=== PATIENT | female | born 1940 | race Caucasian/White ===

== ENCOUNTER 2020-05-23 09:55 | Outpatient (REF) | payer MEDICARE, SELFPAY ==
--- NOTE | 2020-05-23 17:27 | PFT_ITS ---
Forced vital capacity, FEV1, SNU76-65, and MVV are all markedly decreased. Post bronchodilator therapy, there is significant improvement in all parameters. Total lung capacity normal. Residual volume is markedly increased. Diffusion capacity is markedly decreased. CONCLUSION: Severe obstructive airway disorder. Partial reversibility after bronchodilator therapy is noted. These findings are consistent with asthma/COPD overlap syndrome. Clinical correlation recommended. MD KAY Hanson/MODL / [id number]
== END 2020-05-23 09:56 | disposition home or self-care (01) ==
LOC: HO.RESP 09:55
PROVIDERS: PCP Internal Medicine; Visit Provider Hospitalist
DX: R91.8 Other nonspecific abnormal finding of lung field (principal); J43.2 Centrilobular emphysema
CPT/HCPCS: 94060; 94727; 94729; 99212

== ENCOUNTER → 2020-11-29 13:48 | Outpatient (BNVA) | payer MEDICARE, SELFPAY | PROVIDERS: PCP Internal Medicine; Visit Provider Hospitalist | DX: J41.0 Simple chronic bronchitis (principal); R06.00 Dyspnea, unspecified | CPT/HCPCS: 99212 ==

== ENCOUNTER → 2021-07-29 09:18 | Outpatient (BNVA) | payer MEDICARE, SELFPAY | PROVIDERS: PCP Internal Medicine; Visit Provider Hospitalist | DX: J41.0 Simple chronic bronchitis (principal); R06.00 Dyspnea, unspecified; Z79.899 Other long term (current) drug therapy | CPT/HCPCS: 99212 ==

== ENCOUNTER 2021-11-11 14:00 | Outpatient (RCR) | payer MEDICARE, SELFPAY | END 2021-12-11 14:01 | disposition home or self-care (01) | LOC: HO.WCC 14:00 | PROVIDERS: PCP Internal Medicine; Referring Provider Internal Medicine; Visit Provider Surgery | DX: S81.811A Laceration without foreign body, right lower leg, initial encounter (principal); I87.2 Venous insufficiency (chronic) (peripheral); Z79.01 Long term (current) use of anticoagulants; Z79.899 Other long term (current) drug therapy | CPT/HCPCS: 11042; 99212 ==

== ENCOUNTER → 2022-03-17 10:59 | Outpatient (BNVA) | payer MEDICARE, SELFPAY | PROVIDERS: PCP Internal Medicine; Visit Provider Hospitalist | DX: J44.1 Chronic obstructive pulmonary disease with (acute) exacerbation (principal); R06.00 Dyspnea, unspecified | CPT/HCPCS: 94618; 99212 ==

== ENCOUNTER → 2022-07-07 11:24 | Outpatient (BNVA) | payer MEDICARE, SELFPAY | PROVIDERS: PCP Internal Medicine; Visit Provider Hospitalist | DX: J44.9 Chronic obstructive pulmonary disease, unspecified (principal); R06.00 Dyspnea, unspecified; R91.8 Other nonspecific abnormal finding of lung field; Z87.891 Personal history of nicotine dependence | CPT/HCPCS: 99212 ==

== ENCOUNTER 2023-04-23 08:52 | Outpatient (AMB) | payer MEDICARE, SELFPAY ==
[2023-04-23 08:54] VITALS: BP 142/77; PULSE 84; O2SAT 87; BMI 25.2
--- NOTE | 2023-04-23 08:54 | MHC.OFFVIS ---
Intake Vital Signs 04/23/23 08:54 Height 4 ft 11 in Weight 125 lb BMI 25.2 BP 142/77 H Blood Pressure Location Rt brachial Position Sitting Pulse 84 Pulse Source Doppler Pulse Oximetry (%) 87 L Oxygen Delivery Method Room Air Intake Visit Reasons: cough Allergies amoxicillin Allergy (Severe, Verified 04/23/23 09:03) Hives HPI HPI Comments History of Present Illness Details The patient is an 83 year-old woman with known history of COPD in addition to pulmonary nodules. She has been staying very active. He continues on the Bevespi this has been effective and beneficial for her. We did review her CT scan of the chest that she had back in 2018 demonstrating stable pulmonary nodules when compared to many years prior of 03/2012. She also had a chest x-ray done demonstrating hyperinflation. The patient denies any significant shortness of breath or cough. Overall she is doing well. Will plan to repeat her pulmonary function studies and x-ray sometime in the spring of 2020. 03/17/2022 the patient for a sick visit. The patient has been having increasing shortness of breath for the last couple weeks. Moderate severity. Even with minimal activity. She also has a cough. [id number]-[id number] severity. Difficult to expectorate. We did go for 6 minutes walk test. The patient does desaturate down to about 90% but still does not qualify for oxygen. She does have significant COPD and also significant diffusion impairment based on her PFTs from 2020. on examination she does have wheezing. It is likely that she is having a prolonged COPD exacerbation. Will go ahead and start her on some prednisone antibiotics to try to a alleviate her symptoms. Also, for now which patient can start on Flovent. She will provide us with a chest x-ray. 07/07/2022 the patient is here for a pulmonary follow-up visit. Overall she is feeling better. She did start the Flovent inhaler although she did not see any significant improvement. It is also very expensive for her. She also feels like it is cumbersome using up to 6-8 puffs a day with her different inhalers. Therefore will going to go ahead and hold off on the Flovent. I did request that she can just keep it is somewhere that if her symptoms worsen she can be started. Patient seems to be doing okay just in the Vest be. She does use her rescue inhaler as needed prior to doing any excessive activity in this appears to be working for her. Her last chest x-ray personally reviewed no acute disease. She does have a chronic compression fracture. 04/23/2023 the patient is here for pulmonary follow-up visit. Since we lost evaluate the patient she did have an x-ray done by primary care doctor that demonstrated new nodular density. Therefore, she was order to have a CT scan of the chest demonstrating any regular concerning pulmonary nodule. Measuring 1.6 cm in the right upper lobe. Therefore the patient was requested to have an urgent thoracic surgery evaluation for potential surgical resection with curative intent. I did speak to the patient over the phone. She did describe that time that she started developing a cough and chest congestion and wheezing. Therefore having COPD exacerbation. She was started on antibiotics in addition to prednisone. Initially her symptoms were minimal to moderate. The patient was not seen any significant improvement with the medications provided. Therefore she called the office with persistent cough chest congestion. We did increase her antibiotics and broaden her coverage. She had a hard time sleeping. DVT provide her with some codeine cough syrup also helping her cough. Today during the visit she has feeling a lot better. Her cough is significantly less. She is finishing a course of levofloxacin. Prior to that she completed a course of doxycycline. We wanted to make sure that her symptoms improved before her thoracic surgery evaluation coming up next week. The patient was scheduled to have it a week ago but she had to reschedule because of her cough. During the visit we did go for a walking oximetry the patient did not qualify for oxygen although she did desaturate down to the low 90s. [facility] Medical History (Updated 07/07/22 @ 20:38 by Mando Brewer MD) Asthma Dyspnea COPD (chronic obstructive pulmonary disease) Pulmonary nodules Social History Patient Tobacco Use Status: Former Tobacco user Tobacco use type: Cigarette Years Smoked: 40+ years Review of Systems Const Reports difficulty sleeping and Denies night sweats ENT Denies change in voice, Denies lip swelling, Denies mouth pain, Reports nasal congestion, Reports nasal discharge and Denies tongue swelling Card Denies chest pain and Reports dyspnea on exertion Resp Reports change in phlegm color, Reports chest congestion, Reports cough, Denies hemoptysis, Reports dyspnea on exertion and Reports wheezing GI Denies abdominal pain Musc Denies no additional complaints Neuro Denies Neuro-related abnormal movements Psych Denies no additional complaints Karlo/Lymph Denies easy bleeding and Denies lymphadenopathy Aller/Immun Denies lip swelling, Denies tongue swelling and Reports wheezing Physical Exam Vital Signs: Last Vital Signs Pulse 84 04/23/23 08:54 BP 142/77 H 04/23/23 08:54 Pulse Ox 87 L 04/23/23 08:54 Oxygen Delivery Method Room Air 04/23/23 08:54 BMI result Body Mass Index 25.2 Const General: alert Neck Neck: Yes normal visual inspection, Yes full ROM and Yes no lymphadenopathy Chest Chest palpation & inspection: normal inspection of the chest Resp Auscultation: no wheezes and diminished lung sounds Cardio Rate: regular rate Rhythm: regular rhythm Heart sounds: S1 normal heart sound present and S2 normal heart sound present GI Palpation (GI): Soft to palpation and nontender Auscultation: normal bowel sounds Skin General skin exam: rashes and/or lesions noted Assessment & Plan Assessment & Plan (1) Dyspnea: Code(s): R06.00 - Dyspnea, unspecified Qualifiers: Dyspnea type: dyspnea on exertion Qualified Code(s): R06.00 - Dyspnea, unspecified (2) COPD (chronic obstructive pulmonary disease): Code(s): J44.9 - Chronic obstructive pulmonary disease, unspecified Qualifiers: COPD type: COPD with acute exacerbation Qualified Code(s): J44.1 - Chronic obstructive pulmonary disease with (acute) exacerbation (3) Pulmonary nodules: Code(s): R91.8 - Other nonspecific abnormal finding of lung field Plan Continue respiratory therapy with Bevespi complete prednisone taper complete Levaquin TERI as needed continue Fluticasone nasal spray The patient desats with activity, but still does not qualify for oxygen CXR Thoracic surgery consultation for the worrisome RUL pulmonary nodule next week F/U 2 months Orders: Orders XR chest 2V 04/23/23 R06.00 - Dyspnea, unspecified Medications: New nystatin swish and swallow 1 mL PO BID 30 days 60 mL 2RF Coding Level of Care Code Est Pt Level 4 (81206) Diagnoses Dyspnea on exertion R06.00 Dyspnea type: dyspnea on exertion Chronic obstructive pulmonary disease with acute exacerbation J44.1 COPD type: COPD with acute exacerbation Pulmonary nodules R91.8 Time Spent (min) 20
== END 2023-04-23 09:27 | disposition home or self-care (01) ==
PROVIDERS: PCP Internal Medicine; Visit Provider Hospitalist
DX: R06.00 Dyspnea, unspecified (principal); J44.1 Chronic obstructive pulmonary disease with (acute) exacerbation; R91.8 Other nonspecific abnormal finding of lung field
CPT/HCPCS: 99214

== ENCOUNTER → 2023-04-23 08:52 | Outpatient (BNVA) | payer MEDICARE, SELFPAY | PROVIDERS: PCP Internal Medicine; Visit Provider Hospitalist | DX: R06.00 Dyspnea, unspecified (principal); R91.8 Other nonspecific abnormal finding of lung field; J44.1 Chronic obstructive pulmonary disease with (acute) exacerbation | CPT/HCPCS: 99212 ==

== ENCOUNTER 2023-04-27 09:55 | Outpatient (AMB) | payer MEDICARE, SELFPAY ==
[2023-04-27 09:57] VITALS: BP 104/50; PULSE 73; O2SAT 94; BMI 25.2
--- NOTE | 2023-04-27 09:57 | HO.NEPHOV ---
HPI HPI Comments History of Present Illness Details I had the privilege of seeing Ms. Andersen in follow-up of her hypertension. She has history of pulmonary nodules but has a new lesion and is going to undergo a PET scan. She has already seen Dr. Sexton and also is closely followed up by Dr. Mando Brewer. She consumes excess free water by mouth. Her blood pressure has been at goal. She denies worsening pedal edema, change in mental status, weakness, dizziness, hemoptysis, night sweats, weight loss. She does not have any nausea vomiting or diarrhea. [facility] Medical History (Updated 04/27/23 @ 10:27 by Adolfo Welch MD) Asthma Dyspnea COPD (chronic obstructive pulmonary disease) Pulmonary nodules Family History (Updated 04/27/23 @ 10:07 by Megan Marcos MA) Mother Cancer Father Hypertension Social History Patient Tobacco Use Status: Former Tobacco user Tobacco use type: Cigarette Years Smoked: 40+ years Vital Signs 04/27/23 09:57 Height 4 ft 11 in Weight 125 lb BMI 25.2 BP 104/50 L Blood Pressure Location Lt brachial Position Sitting Pulse 73 Pulse Source Pulse Oximeter Pulse Oximetry (%) 94 Oxygen Delivery Method Room Air Physical Exam Vital Signs: Last Vital Signs Pulse 73 04/27/23 09:57 BP 104/50 L 04/27/23 09:57 Pulse Ox 94 04/27/23 09:57 Oxygen Delivery Method Room Air 04/27/23 09:57 BMI result Body Mass Index 25.2 Const General: comfortable and no acute distress Orientation/consciousness: patient oriented x3 HEENT Head: Yes normocephalic Mouth: Normal oral and palatal mucosa present Eyes EOM: EOMs intact bilaterally Neck Neck: Yes supple Resp Auscultation: clear to auscultation bilaterally Cardio Jugular venous distension: no JVD Rate: regular rate GI Palpation (GI): Soft to palpation Auscultation: normal bowel sounds General: Yes no CVA tenderness Back/Spine/Pelvis Back: no CVA tenderness Skin General skin exam: no rashes or lesions noted Neuro General: patient oriented x3 and moves all extremities Extrem General: Yes no pedal edema Assessment & Plan Assessment & Plan (1) Hypertension: Code(s): I10 - Essential (primary) hypertension Qualifiers: Hypertension type: primary hypertension Qualified Code(s): I10 - Essential (primary) hypertension Plan Ms. Andersen has longstanding hypertension which is well controlled on the current medication regimen. She is not taking any hydrochlorothiazide. She takes an excess free water which I asked her to restrict to 50-60 oz in 24 hours. She is going to undergo PET scan. She may need a biopsy of the lung lesion. She should cut back sodium in the diet. I did not make any medication changes today. Follow-up blood work ordered. Follow-up appointment given in 6 months. Answered all questions. Orders: Orders Creatinine Today I10 - Essential (primary) hypertension Electrolytes Today I10 - Essential (primary) hypertension Blood Urea Nitrogen Today I10 - Essential (primary) hypertension Coding Level of Care Code Est Pt Level 4 (76093) Diagnoses Primary hypertension I10 Hypertension type: primary hypertension Results Reviewed Nephrology Results: No Data to Display
== END 2023-04-27 10:32 | disposition home or self-care (01) ==
PROVIDERS: PCP Internal Medicine; Visit Provider Internal Medicine Nephrology
DX: I10 Essential (primary) hypertension (principal)
CPT/HCPCS: 99214

== ENCOUNTER → 2023-04-27 09:55 | Outpatient (BNVA) | payer MEDICARE, SELFPAY | PROVIDERS: PCP Internal Medicine; Visit Provider Internal Medicine Nephrology | DX: I10 Essential (primary) hypertension (principal) | CPT/HCPCS: 99212 ==

== ENCOUNTER 2023-06-24 08:52 | Outpatient (AMB) | payer MEDICARE, SELFPAY ==
[2023-06-24 09:00] VITALS: PULSE 69; O2SAT 96; BMI 25.3
--- NOTE | 2023-06-24 09:00 | A.OFFVIS_ITS ---
Vital Signs 06/24/23 09:00 Height 4 ft 11 in Weight 125 lb 7.088 oz BMI 25.3 Pulse 69 Pulse Source Pulse Oximeter Pulse Oximetry (%) 96 Oxygen Delivery Method Room Air Intake Visit Reasons: Cough Software Sales Required: No Allergies amoxicillin Allergy (Severe, Verified 06/24/23 09:02) Hives HPI Comments Details: The patient is an 83 year-old woman with known history of COPD in addition to pulmonary nodules. She has been staying very active. He continues on the Bevespi this has been effective and beneficial for her. We did review her CT scan of the chest that she had back in 2018 demonstrating stable pulmonary nodules when compared to many years prior of 03/2012. She also had a chest x-ray done demonstrating hyperinflation. The patient denies any significant shortness of breath or cough. Overall she is doing well. Will plan to repeat her pulmonary function studies and x-ray sometime in the spring. 03/17/2022 the patient for a sick visit. The patient has been having increasing shortness of breath for the last couple weeks. Moderate severity. Even with minimal activity. She also has a cough. Symt-re-fjalmstx severity. Difficult to expectorate. We did go for 6 minutes walk test. The patient does desaturate down to about 90% but still does not qualify for oxygen. She does have significant COPD and also significant diffusion impairment based on her PFTs from 2020. on examination she does have wheezing. It is likely that she is having a prolonged COPD exacerbation. Will go ahead and start her on some prednisone antibiotics to try to a alleviate her symptoms. Also, for now which patient can start on Flovent. She will provide us with a chest x-ray. 07/07/2022 the patient is here for a pulmonary follow-up visit. Overall she is feeling better. She did start the Flovent inhaler although she did not see any significant improvement. It is also very expensive for her. She also feels like it is cumbersome using up to 6-8 puffs a day with her different inhalers. Therefore will going to go ahead and hold off on the Flovent. I did request that she can just keep it is somewhere that if her symptoms worsen she can be started. Patient seems to be doing okay just in the Vest be. She does use her rescue inhaler as needed prior to doing any excessive activity in this appears to be working for her. Her last chest x-ray personally reviewed no acute disease. She does have a chronic compression fracture. 04/23/2023 the patient is here for pulmonary follow-up visit. Since we lost evaluate the patient she did have an x-ray done by primary care doctor that demonstrated new nodular density. Therefore, she was order to have a CT scan of the chest demonstrating any regular concerning pulmonary nodule. Measuring 1.6 cm in the right upper lobe. Therefore the patient was requested to have an urgent thoracic surgery evaluation for potential surgical resection with curative intent. I did speak to the patient over the phone. She did describe that time that she started developing a cough and chest congestion and wheezing. Therefore having COPD exacerbation. She was started on antibiotics in addition to prednisone. Initially her symptoms were minimal to moderate. The patient was not seen any significant improvement with the medications provided. Therefore she called the office with persistent cough chest congestion. We did increase her antibiotics and broaden her coverage. She had a hard time sleeping. DVT provide her with some codeine cough syrup also helping her cough. Today during the visit she has feeling a lot better. Her cough is significantly less. She is finishing a course of levofloxacin. Prior to that she completed a course of doxycycline. We wanted to make sure that her symptoms improved before her thoracic surgery evaluation coming up next week. The patient was scheduled to have it a week ago but she had to reschedule because of her cough. During the visit we did go for a walking oximetry the patient did not qualify for oxygen although she did desaturate down to the low 90s. 06/24/2023 the patient is here for pulmonary follow-up visit. She finally recovered from the pneumonia. She completed the antibiotics in the prednisone. She did use the oxygen briefly but then she felt better she did not require anymore. She is thinking about getting an oximeter to monitor his oxygen which is a good idea. Today walking in the room she was saturating 95% which is reassuring. She also underwent a Navagational bronchoscopy and EBUS. This is done at [facility]. The patient will be following up with Dr. Sexton next week. Will go ahead and call him to make sure we discussed the findings and have a good plan for the patient. In the meantime she is feeling better. She has been using respiratory therapy as prescribed. [facility] Medical History (Updated 04/27/23 @ 10:27 by Adolfo Welch MD) Asthma Dyspnea COPD (chronic obstructive pulmonary disease) Pulmonary nodules Family History (Updated 04/27/23 @ 10:07 by Megan Marcos MA) Mother Cancer Father Hypertension Social History Patient Tobacco Use Status: Former Tobacco user Tobacco use type: Cigarette Years Smoked: 40+ years Review of Systems Const Denies night sweats ENT Denies change in voice, Denies lip swelling, Denies mouth pain, Reports nasal congestion, Reports nasal discharge and Denies tongue swelling Card Denies chest pain and Reports dyspnea on exertion Resp Denies change in phlegm color, Denies chest congestion, Reports cough, Denies hemoptysis, Reports dyspnea on exertion and Denies wheezing GI Denies abdominal pain Musc Denies no additional complaints Neuro Denies Neuro-related abnormal movements Psych Denies no additional complaints Karlo/Lymph Denies easy bleeding and Denies lymphadenopathy Aller/Immun Denies lip swelling, Denies tongue swelling and Denies wheezing Physical Exam Vital Signs: Last Vital Signs Pulse 69 06/24/23 09:00 Pulse Ox 96 06/24/23 09:00 Oxygen Delivery Method Room Air 06/24/23 09:00 BMI result Body Mass Index 25.3 Const General: alert Neck Neck: Yes normal visual inspection, Yes full ROM and Yes no lymphadenopathy Chest Chest palpation & inspection: normal inspection of the chest Resp Effort & Inspection: normal respiratory effort Auscultation: no wheezes and diminished lung sounds Cardio Rate: regular rate Rhythm: regular rhythm Heart sounds: S1 normal heart sound present and S2 normal heart sound present GI Palpation (GI): Soft to palpation and nontender Auscultation: normal bowel sounds Skin General skin exam: rashes and/or lesions noted Assessment & Plan Assessment & Plan (1) Dyspnea: Code(s): R06.00 - Dyspnea, unspecified Category: Medical Qualifiers: Dyspnea type: dyspnea on exertion Qualified Code(s): R06.00 - Dyspnea, unspecified (2) COPD (chronic obstructive pulmonary disease): Code(s): J44.9 - Chronic obstructive pulmonary disease, unspecified Category: Medical Qualifiers: COPD type: COPD with acute exacerbation Qualified Code(s): J44.1 - Chronic obstructive pulmonary disease with (acute) exacerbation (3) Pulmonary nodules: Code(s): R91.8 - Other nonspecific abnormal finding of lung field Category: Medical Plan Continue respiratory therapy with Bevespi TERI as needed continue Fluticasone nasal spray Awaiting pathology results of the Navagational bronchoscopy/EBUS Discontinue oxygen, better at this point F/U 3 months Coding Level of Care Code Est Pt Level 4 (65228) Diagnoses Dyspnea on exertion R06.00 Dyspnea type: dyspnea on exertion Chronic obstructive pulmonary disease with acute exacerbation J44.1 COPD type: COPD with acute exacerbation Pulmonary nodules R91.8 Time Spent (min) 16
== END 2023-06-24 09:21 | disposition home or self-care (01) ==
PROVIDERS: PCP Internal Medicine; Visit Provider Hospitalist
DX: R06.00 Dyspnea, unspecified (principal); J44.1 Chronic obstructive pulmonary disease with (acute) exacerbation; R91.8 Other nonspecific abnormal finding of lung field
CPT/HCPCS: 99214

== ENCOUNTER → 2023-06-24 08:52 | Outpatient (BNVA) | payer MEDICARE, SELFPAY | PROVIDERS: PCP Internal Medicine; Visit Provider Hospitalist | DX: R06.00 Dyspnea, unspecified (principal); J44.1 Chronic obstructive pulmonary disease with (acute) exacerbation; R91.8 Other nonspecific abnormal finding of lung field | CPT/HCPCS: 99212 ==

== ENCOUNTER 2023-06-30 12:50 | Outpatient (AMB) | payer MEDICARE, SELFPAY ==
--- OUTSIDE RECORDS SUMMARY | 2023-06-30 12:52 | XMS_ITS | Continuity of Care Document ---
Author Organization [facility] ter Address [address] [place] [id number] Care Team Providers Care Swift Tender Name Role Phone Vidal Payan MD Primary Care Physician Encounter [facility] [place] Date(s): 03/18/23 - 03/18/[address] [address]- Attending Physician: Vidal Payan MD Patient Care team information Care Team Personnel Name: Kenyetta Watson Position: [facility] Outreach Member Role: [employer] Consulting Physician Name: Vidal Payan MD Position: [facility] Outreach Member Role: PCP Address: Address: [address] [place] [address] Care Team Related Persons Name: ARTHUR YOU Address: home [address] [place] [address]
--- OUTSIDE RECORDS SUMMARY | 2023-06-30 12:52 | XMS_ITS | Patient Health Record ---
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 Name Role Phone Vidal Payan MD Primary Care Provider Unavail able Carla Johnson Unavailable [phone] ALLERGIES Allergen (clinical drug ingredient) Drug/Non Drug Allergy documented on EMR Reaction Allergy Type Onset Date Status Penicillin Unknown Drug Allergy Active REASON FOR REFERRAL Diagnosis 1 Atherosclerosis of n ative artery of both lower extremities, with unspecified presence of clinical manifestation (I70.203) Diagnosis 2 Pain in left toe(s) (M79.675) Diagnosis 3 Pain in right toe(s) (M79.674) Diagnosis 4 Ingrown nail (L60.0) Diagnosis 5 Tinea unguium (B35.1 ) Referring Provider First Name Vidal Referring Provider Last Name Schuyler Referred [facility] Referred Provider Carla Johnson Referred Address [address] [facility],[place],[address], Referred Provider Specialty Podiatry Referral Priority Routine MEDICATIONS Medication SIG (Take, Route, Frequency, Duration) Notes Start Date End Date Status Eliquis 2.5 MG TAKE 1 TABLET BY RAZ TWICE DAILY Oral for 30 Days Active Fluticasone Propionate 50 MCG/ACT Nasal for 90 Days Active Arthritis Pain 2023 Acti ve Carvedilol 12.5 MG Oral for 90 Days Active Alendronate Sodium 70 MG Oral for 84 Days Active Bevespi Aerosphere 9-4.8 MCG/ACT INHALE 2 PUFFS BY MOUTH TWICE DAILY Inhalation for 90 Days Active Rosuvastatin Calcium 20 MG TAKE 1 TABLET BY MOUTH EVERY DAY Oral for 90 Days Active Calcium 600 MG 1 tablet with meals Orally Twice a day for 30 day(s) 2023 Active Donepezil HCl 10 MG TAKE 1 TABLET BY RAZ TH EVERY DAY AT BEDTIME Oral for 90 Days Active Albuterol Sulfate HFA 108 (90 Base) MCG/ACT INHALE 1 TO 2 PUFFS BY MOUTH EVERY 4 TO 6 HOURS NEEDED Inhalation for 16 Days Active amLODIPine Besylate 5 MG TAKE 1 TABLET B Y MOUTH EVERY DAY Oral for 60 Days Active Qvar 2023 Active Vision Select 2023 Activ e Aspirin Low Dose 81 MG 1 tablet Orally O nce a day for 30 day(s) 2023 Active Turmeric Curcumin 500 MG as directed Orally 2023 Active Magnesium 400 MG as directed Orally 2023 Active SOCIAL HISTORY Tobacco Use: Social History Observation Description Date Details (start date - stop date) Former Smoker NA - NA Sex Assigned At : Social History Observation Description Sex Assigned At Unknown Tobacco Use/Smoking Question Answer Notes Are you a: former smoker Additional Findings: Tobacco Non-User Current no n-smoker Alcohol Screen Question Answer Notes Did you have a drink containing alcohol in the p ast year? No Points 0 Interpretation Negative Tobacco use other than smoking: Question Answer Notes Are you an other tobacco user? No PROBLEMS Problem Type ICD Code Onset Dates Problem Status W/U Status Risk SNOMED Code Notes Problem Hammer toe of right foot (M20.41) Active confirmed [id number] Problem 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) Active confirmed [id number] Problem Atherosclerosis of jamul artery of both lower extremities, with unspecified presence of clinical manifestation (I70.203) Active confirmed Atherosclerosis of jamul arteries of the extremities ([id number]) VITAL SIGNS Height 5 ft in 04/21/2023 Weight 130 lbs 04/21/2023 BMI 25.39 kg/m2 04/21/2023 Encounters Encounter Location Date Provider Diagnosis [facility] [address] 02/02/2023 Carla Johnson [facility] [address] [address] 2023 Carla Johnson [facility] [address] 04/21/2023 Carla Johnson Atherosclerosis of jamul artery of both lower extremities, with unspecified presence of clinical manifestation I70.203 ; Tinea unguium B35.1 ; Pain in right toe(s) M79.674 ; Pain in left toe(s) M79.675 ; Hammer toe of right foot M20.41 and Hammer toe of left foot M20.42 ASSESSMENTS Encounter Date Diagnosis Assessment Notes Treatment Notes Treatment Clinical Notes 04/21/2023 Tinea unguium (ICD-1 0 - B35.1) 04/21/2023 Atherosclerosis of jamul artery of both lower extremities, with unspecified presence of clinical manifestation (ICD-10 - I70.203) 04/21/2023 Pain in right toe(s) (ICD-10 - M79.674) 04/21/2023 Pain in left toe(s) (ICD-10 - M79.675) 04/21/2023 Hammer toe of right foot (ICD-10 - M20.41) 04/21/2023 Hammer toe of left foot (ICD-10 - M20.42) PLAN OF TREATMENT Next Appt Details Provider Name:Carla vasquez, 07/09/2023 12:45:00 PM, [address] [place] [address], [phone], Insurance Providers Payer Name Payer Address Payer Phone Subscriber Number Group Number Insured Name Patient Relationship to Insured Coverage Start Date Coverage End Date [employer] Medicare Preferred [address] [place] [address] [id number] Raquel Andersen Self - patient is the insured MEDICAL (GENERAL) HISTORY Medical History History ICD Code Arthritis Back,Hip,and Knee pain High blood pressure Chicken pox Surgical History Surgery Date(Month/Year)
[2023-06-30 12:56] VITALS: BP 130/76; PULSE 72; TEMP 36.3; O2SAT 96; BMI 24.6
--- NOTE | 2023-06-30 12:56 | AM.OFFWIN_ITS ---
Intake Vital Signs 06/30/23 12:56 Height 4 ft 11 in Weight 122 lb BMI 24.6 BP 130/76 Blood Pressure Location Lt brachial Position Sitting Pulse 72 Pulse Source Pulse Oximeter Temp 97.3 F Temp Source Temporal Artery Scan Pulse Oximetry (%) 96 Oxygen Delivery Method Room Air Intake Visit Reasons: EST/fell on left knee bleeding(lobby) Intake Note: pt is here today for fell on lft knee started today Patient Tobacco Use Status: Former Tobacco user Allergies amoxicillin Allergy (Severe, Verified 06/30/23 13:02) Hives Do you need a note to return to daycare/school/sports/work: Yes HPI HPI Comments History of Present Illness Details Patient is an 83yo F who presents to office with L knee pain and injury This am she was picking up something on the floor of her closet and tripped No carpetted floors Fell onto L knee No HT, LOC, dizziness, CP or syncope + abrasion L knee with bruising bleeding wound which she tried to apply neosporin and washed with water UTD on tetanus vaccination Took tramadol which she has for chronic back pain with some help of knee discomfort Worse with ambulation and bending of knee No other complaints PFSH Medical History (Updated 06/30/23 @ 13:30 by Rebekah Bocanegra PA-C) Asthma Dyspnea COPD (chronic obstructive pulmonary disease) Pulmonary nodules Family History (Updated 04/27/23 @ 10:07 by Megan Marcos MA) Mother Cancer Father Hypertension Social History Patient Tobacco Use Status: Former Tobacco user Tobacco use type: Cigarette Years Smoked: 40+ years Review of Systems Const Denies chills, Denies fever(s) and Denies headache(s) Eyes Denies blurry vision ENT Denies dizziness and Denies headache(s) Card Denies chest pain, Denies syncope and Denies dyspnea Resp Denies dyspnea Musc Reports joint swelling (L knee) Skin/Breast Reports wounds (L knee) Neuro Denies dizziness, Denies syncope, Denies headache(s), Denies lack of coordin ation and Denies other (denies loss of conciousness of head trauma) Karlo/Lymph Reports other (on Elaquis) Physical Exam Vital Signs: Last Vital Signs Temp 97.3 F 05/15/24 12:56 Pulse 72 06/30/23 12:56 BP 130/76 06/30/23 12:56 Pulse Ox 96 06/30/23 12:56 Oxygen Delivery Method Room Air 06/30/23 12:56 BMI result Body Mass Index 24.6 General: Non-toxic, NAD. Speaking full sentences. Skin: Warm dry throughout. L knee has + C shapped skin flap with slow bleed. No visualized FB. Approx 1.5 cm x 1.5cm. Flap is able to be aligned with wound edge using forceps. + deep purple/red skin discoloration to anterior L goodwin just distal to L knee along lateral edge. Eye: EOMI Respiratory: No respiratory distress or stridor MSK: Decreased flexion L knee due to wound. No bony tenderness to palpation but diffuse soft tissue tenderness near wound. Neurology: A/O. No aphasia or facial droop. Gait without abnormality Psych: Good mood and affect Office Procedures Laceration Repair Details: see below Laceration repair performed by: Rebekah Bocanegra Explained risks and benefits to parent: Yes Informed consent given: Yes Consent signed: No Location: L knee Length: 1.5cm Sedation: No Anesthesia: other (none) Irrigation: saline (NS used to irrigate/clean wound. Forceps used to lift flap without FB seen.) Preparation: other (none) Wound exploration: none Deep closure: No Skin closure: other (steri strips) Technique: foceprs used to approximate flap edges with wound border & strips applied Topical treatment: other (none. Non-adhesive and tegaderm) Tetanus toxoid ordered: No (pt states UTD) Patient tolerated procedure: with discomfort (minimal burning) [place]: [place] [id number] Repair <2.5cm Procedure code (CPT) selection complete Assessment & Plan Assessment & Plan (1) Abrasion of knee, left: Code(s): S80.212A - Abrasion, left knee, initial encounter Qualifiers: Encounter type: initial encounter Qualified Code(s): S80.212A - Abrasion, left knee, initial encounter Plan: Patient seen and evaluated. She will return in 24 hours for dressing change as she does not feel comfortable changing herself JESUS applied to avoid bending and for comfort She declined knee immobilizer or crutches Patient gave verbal understanding and had no additional questions or concerns at time of discharge All questions answered Coding Level of Care Code Est Pt Level 3 (23049) Diagnoses Abrasion of left knee, initial encounter S80.212A Encounter type: initial encounter
== END 2023-06-30 13:35 | disposition home or self-care (01) ==
PROVIDERS: PCP Internal Medicine; Visit Provider Physician Assistant
DX: S80.212A Abrasion, left knee, initial encounter (principal)
CPT/HCPCS: 99213

== ENCOUNTER 2023-07-02 11:31 | Outpatient (AMB) | payer MEDICARE, SELFPAY ==
--- OUTSIDE RECORDS SUMMARY | 2023-07-02 11:33 | XMS_ITS | Patient Health Record ---
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 Name Role Phone Vidal Payan MD Primary Care Provider Unavail able Carla Johnson Unavailable [phone] ALLERGIES Allergen (clinical drug ingredient) Drug/Non Drug [...] Vidal Referring Provider Last Name Schuyler Referred [facility] Referred Provider Carla Johnson Referred Address [address] [facility],[place], [place],[address], Referred Provider Specialty Podiatry Referral Priority Routine [...] toe of right foot (M20.41) Active confirmed [id number] Problem 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) Active confirmed [id number] Problem 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, with unspecified presence of clinical manifestation (I70.203) Active confirmed Atherosclerosis of grindstone arteries of the extremities ([id number]) VITAL SIGNS Height 5 ft in 04/21/2023 Weight 130 lbs 04/21/2023 BMI 25.39 kg/m2 04/21/2023 Encounters Encounter Location Date Provider Diagnosis [facility] [address] 02/02/2023 Carla Johnson [facility] [address] [address] 2023 Carla Johnson [facility] [address] 04/21/2023 Carla Johnson 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, with unspecified presence of clinical manifestation I70.203 ; Tinea unguium B35.1 ; Pain in right toe(s) M79.674 ; Pain in left toe(s) M79.675 ; Hammer toe of right foot M20.41 and Hammer toe of left foot M20.42 ASSESSMENTS Encounter Date Diagnosis Assessment Notes Treatment Notes Treatment Clinical Notes 04/21/2023 Tinea unguium (ICD-1 0 - B35.1) 04/21/2023 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, with unspecified presence of clinical manifestation (ICD-10 - I70.203) 04/21/2023 Pain in right toe(s) (ICD-10 - M79.674) 04/21/2023 Pain in left toe(s) (ICD-10 - M79.675) 04/21/2023 Hammer toe of right foot (ICD-10 - M20.41) 04/21/2023 Hammer toe of left foot (ICD-10 - M20.42) PLAN OF TREATMENT Next Appt Details Provider Name:Carla vasquez, 07/09/2023 12:45:00 PM, [address] [place] [address], [phone], Insurance Providers Payer Name Payer Address Payer Phone Subscriber Number Group Number Insured Name Patient Relationship to Insured Coverage Start Date Coverage End Date [employer] Preferred [address] [place] [address] [id number] Raquel Andersen Self - patient is the insured MEDICAL (GENERAL) HISTORY Medical History History ICD Code Arthritis Back,Hip,and Knee pain High blood pressure Chicken pox Surgical History Surgery Date(Month/Year)
[2023-07-02 12:01] VITALS: BP 112/62; PULSE 71; O2SAT 95; BMI 24.9
--- NOTE | 2023-07-02 12:01 | MHC.OFFWIV ---
Intake Vital Signs 07/02/23 12:01 Height 4 ft 11 in Weight 123 lb 8 oz BMI 24.9 BP 112/62 Blood Pressure Location Lt brachial Position Sitting Pulse 71 Pulse Source Pulse Oximeter Pulse Oximetry (%) 95 Oxygen Delivery Method Room Air Intake Visit Reasons: EP left knee Intake Note: Pt presents to the office today for c/o left knee pain after a fall. She states she came to the walk in on wednesday and would just like it checked today and re-bandaged. Patient Tobacco Use Status: Former Tobacco user Allergies amoxicillin Allergy (Severe, Verified 07/02/23 12:03) Hives HPI EP left knee HPI Details This 83 year old female patient returns to the [place] clinic today for f/u on her left knee injury/abrasion. She was seen here on 06/29 for this injury following a fall at home. Area was cleansed, steri-strips applied, and dressing and jesus wrap were applied. She comes in today to have area looked at and to have dressing reapplied if possible. She reports feeling better today. Reports small amount of bleeding on dressing. [facility] Medical History Asthma Dyspnea COPD (chronic obstructive pulmonary disease) Pulmonary nodules Family History Mother Cancer Father Hypertension Social History Patient Tobacco Use Status: Former Tobacco user Tobacco use type: Cigarette Years Smoked: 40+ years Review of Systems Const All systems reviewed & are unremarkable except as noted in HPI and below Physical Exam Vital Signs: Last Vital Signs Pulse 71 07/02/23 12:01 BP 112/62 07/02/23 12:01 Pulse Ox 95 07/02/23 12:01 Oxygen Delivery Method Room Air 07/02/23 12:01 BMI result Body Mass Index 24.9 General: Non-toxic, NAD. Speaking full sentences. Skin: Warm dry throughout. L knee has + C shapped skin flap with slow bleed. No visualized FB. Approx 1.5 cm x 1.5cm. Flap is able to be aligned with wound edge using forceps. + deep purple/red skin discoloration to anterior L goodwin just distal to L knee along lateral edge. Eye: EOMI Respiratory: No respiratory distress or stridor MSK: Decreased flexion L knee due to wound. No bony tenderness to palpation but diffuse soft tissue tenderness near wound. Neurology: A/O. No aphasia or facial droop. Gait without abnormality Psych: Good mood and affect Const General: cooperative, healthy appearing and no acute distress Resp Effort & Inspection: normal respiratory effort Extrem Other: L knee has + C shapped skin flap that is well-approximated with intact/stained steri-strips. Small amount bloody drainage on non-adherent dressing. + deep purple/red skin discoloration to anterior L goodwin just distal to L knee along lateral edge. Decreased flexion L knee due to wound. Diffuse soft tissue tenderness near wound. Psych Appearance: grossly normal Mental Status: mental status grossly normal Speech and movement: Normal speech and movement present Assessment & Plan Assessment & Plan (1) Abrasion of knee, left: Code(s): S80.212A - Abrasion, left knee, initial encounter Qualifiers: Encounter type: subsequent encounter Qualified Code(s): S80.212D - Abrasion, left knee, subsequent encounter Plan: Old dressing removed. Steri-strips intact. Surrounding area cleansed with NS. New non-adherent DSD with tegaderm applied. Knee then wrapped with JESUS bandage per patient's request. We reviewed warning signs and symptoms of infection and to return to clinic if these develop. Reviewed techniques to keep area clean/dry. Additional dressing supplies provided and instructed patient on how to perform dressing changes as needed at home. All questions were answered and patient agrees to plan. Coding Level of Care Code Est Pt Level 4 (14047) Diagnoses Abrasion of left knee, subsequent encounter S80.212D Encounter type: subsequent encounter
== END 2023-07-02 12:48 | disposition home or self-care (01) ==
PROVIDERS: PCP Internal Medicine; Visit Provider Nurse Practitioner Family
DX: S80.212D Abrasion, left knee, subsequent encounter (principal)
CPT/HCPCS: 99214

== ENCOUNTER 2023-10-14 14:18 | Outpatient (AMB) | payer MEDICARE, SELFPAY ==
--- NOTE | 2023-10-14 14:28 | MHC.OFFVIS ---
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 She has been staying very active. He continues on the Bevespi this has been effective and beneficial for her. We did review her CT scan of the chest that she had back in 2018 demonstrating stable pulmonary nodules when compared to many years prior of 03/2012. She also had a chest x-ray done demonstrating hyperinflation. The patient denies any significant shortness of breath or cough. Overall she is doing well. Will plan to repeat her pulmonary function studies and x-ray sometime in the spring of 2020. 04/23/2023 the patient is here for pulmonary follow-up visit. Since we lost evaluate the patient she did have an x-ray done by primary care doctor that demonstrated new nodular density. Therefore, she was order to have a CT scan of the chest demonstrating any regular concerning pulmonary nodule. Measuring 1.6 cm in the right upper lobe. Therefore the patient was requested to have an urgent thoracic surgery evaluation for potential surgical resection with curative intent. I did speak to the patient over the phone. She did describe that time that she started developing a cough and chest congestion and wheezing. Therefore having COPD exacerbation. She was started on antibiotics in addition to prednisone. Initially her symptoms were minimal to moderate. The patient was not seen any significant improvement with the medications provided. Therefore she called the office with persistent cough chest congestion. We did increase her antibiotics and broaden her coverage. She had a hard time sleeping. DVT provide her with some codeine cough syrup also helping her cough. Today during the visit she has feeling a lot better. Her cough is significantly less. She is finishing a course of levofloxacin. Prior to that she completed a course of doxycycline. We wanted to make sure that her symptoms improved before her thoracic surgery evaluation coming up next week. The patient was scheduled to have it a week ago but she had to reschedule because of her cough. During the visit we did go for a walking oximetry the patient did not qualify for oxygen although she did desaturate down to the low 90s. 06/24/2023 the patient is here for pulmonary follow-up visit. She finally recovered from the pneumonia. She completed the antibiotics in the prednisone. She did use the oxygen briefly but then she felt better she did not require anymore. She is thinking about getting an oximeter to monitor his oxygen which is a good idea. Today walking in the room she was saturating 95% which is reassuring. She also underwent a Navagational bronchoscopy and EBUS. This is done at [facility]. The patient will be following up with Dr. Sexton next week. Will go ahead and call him to make sure we discussed the findings and have a good plan for the patient. In the meantime she is feeling better. She has been using respiratory therapy as prescribed. 10/14/2023 the patient is here for a pulmonary follow-up visit. Overall the patient has been doing well from a respiratory status. Except for now she is having significant back pain. She is working with spine and sports. She has may need another cortisone injections or steroid injection to the back. The patient did follow-up with [facility]. The patient was noted to have a malignancy on her biopsy. 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 Therefore, it was recommended that she go back to the local hospital and be evaluated by Oncology pair. She will be seeing Oncology at [facility] soon. The patient appears to have lesions already in the liver suggesting that is spread elsewhere. Respiratory escalante she is doing well on current regimen. No further changes there. During the office visit did we did go for brief walking oximetry the patient's oxygen was very good very stable at 98%. [facility] Medical History (Updated 10/14/23 @ 21:26 by Mando Brewer MD) Sarcoma Asthma Dyspnea COPD (chronic obstructive pulmonary disease) Pulmonary nodules Family History Mother Cancer Father Hypertension Social History Patient Tobacco Use Status: Former Tobacco user Tobacco use type: Cigarette Years Smoked: 40+ years Review of Systems Const Denies night sweats ENT Denies change in voice, Denies lip swelling, Denies mouth pain, Reports nasal congestion, Reports nasal discharge and Denies tongue swelling Card Denies chest pain and Reports dyspnea on exertion Resp Denies change in phlegm color, Denies chest congestion, Reports cough, Denies hemoptysis, Reports dyspnea on exertion and Denies wheezing GI Denies abdominal pain Musc Denies no additional complaints, Reports back pain and Reports myalgias Neuro Denies Neuro-related abnormal movements Psych Denies no additional complaints Karlo/Lymph Denies easy bleeding and Denies lymphadenopathy Aller/Immun Denies lip swelling, Denies tongue swelling and Denies wheezing Physical Exam Vital Signs: Last Vital Signs BP 122/60 10/14/23 14:31 BMI result Body Mass Index 24.2 Const General: alert Neck Neck: Yes normal visual inspection, Yes full ROM and Yes no lymphadenopathy Chest Chest palpation & inspection: normal inspection of the chest Resp Effort & Inspection: normal respiratory effort Auscultation: no wheezes and diminished lung sounds Cardio Rate: regular rate Rhythm: regular rhythm Heart sounds: S1 normal heart sound present and S2 normal heart sound present GI Palpation (GI): Soft to palpation and nontender Auscultation: normal bowel sounds Skin General skin exam: rashes and/or lesions noted Assessment & Plan Assessment & Plan (1) Dyspnea: Code(s): R06.00 - Dyspnea, unspecified Category: Medical Qualifiers: Dyspnea type: dyspnea on exertion Qualified Code(s): R06.00 - Dyspnea, unspecified (2) COPD (chronic obstructive pulmonary disease): Code(s): J44.9 - Chronic obstructive pulmonary disease, unspecified Category: Medical Qualifiers: COPD type: COPD with acute exacerbation Qualified Code(s): J44.1 - Chronic obstructive pulmonary disease with (acute) exacerbation (3) Pulmonary nodules: Code(s): R91.8 - Other nonspecific abnormal finding of lung field Category: Medical (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, unspecified Category: Medical Plan Continue respiratory therapy with Bevespi TERI as needed continue Fluticasone nasal spray Sarcomatoid Carcinoma, 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
[2023-10-14 14:31] VITALS: BP 122/60; BMI 24.2
== END 2023-10-14 14:55 | disposition home or self-care (01) ==
PROVIDERS: PCP Internal Medicine; Visit Provider Hospitalist
DX: R06.00 Dyspnea, unspecified (principal); J44.1 Chronic obstructive pulmonary disease with (acute) exacerbation; R91.8 Other nonspecific abnormal finding of lung field; C49.9 Malignant neoplasm of connective and soft tissue, unspecified
CPT/HCPCS: 99214; G2211

== ENCOUNTER → 2023-10-14 14:18 | Outpatient (BNVA) | payer MEDICARE, SELFPAY | PROVIDERS: PCP Internal Medicine; Visit Provider Hospitalist | DX: J44.1 Chronic obstructive pulmonary disease with (acute) exacerbation (principal); R06.00 Dyspnea, unspecified; R91.8 Other nonspecific abnormal finding of lung field; C49.9 Malignant neoplasm of connective and soft tissue, unspecified | CPT/HCPCS: 99212 ==

== ENCOUNTER 2023-10-28 10:55 | Outpatient (AMB) | payer MEDICARE, SELFPAY ==
--- NOTE | 2023-10-28 10:57 | HO.NEPHOV_ITS ---
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 Andersen in follow-up of her hypertension. She now has a dignosis of lung cancer and is starting chemo tomorrow. She consumes excess free water by mouth. Her blood pressure has been at goal. She denies worsening pedal edema, change in mental status, weakness, dizziness, hemoptysis, night sweats, weight loss. She does not have any nausea vomiting or diarrhea. Her BP has been at goal at home. [facility] Medical History (Updated 10/14/23 @ 21:26 by Mando Brewer MD) Sarcoma Asthma Dyspnea COPD (chronic obstructive pulmonary disease) Pulmonary nodules Family History Mother Cancer Father Hypertension Social History Patient Tobacco Use Status: Former Tobacco user Tobacco use type: Cigarette Years Smoked: 40+ years Review of Systems Const All systems reviewed & are unremarkable except as noted in HPI and below Physical Exam Vital Signs: Last Vital Signs Pulse 61 10/28/23 10:58 BP 148/60 H 10/28/23 10:58 Pulse Ox 97 10/28/23 10:58 Oxygen Delivery Method Room Air 10/28/23 10:58 BMI result Body Mass Index 24.1 Const General: comfortable and no acute distress Orientation/consciousness: patient oriented x3 HEENT Head: Yes normocephalic Mouth: Normal oral and palatal mucosa present Eyes EOM: EOMs intact bilaterally Neck Neck: Yes supple Resp Auscultation: clear to auscultation bilaterally Cardio Jugular venous distension: no JVD Rate: regular rate GI Palpation (GI): Soft to palpation Auscultation: normal bowel sounds General: Yes no CVA tenderness Back/Spine/Pelvis Back: no CVA tenderness Skin General skin exam: no rashes or lesions noted Neuro General: patient oriented x3 and moves all extremities Extrem General: Yes no pedal edema Results Reviewed Nephrology Results: No Data to Display Assessment & Plan Assessment & Plan (1) Hypertension: Code(s): I10 - Essential (primary) hypertension Category: Medical Qualifiers: Hypertension type: primary hypertension Qualified Code(s): I10 - Ess ential (primary) hypertension Plan Ms. Andersen has longstanding hypertension which is well controlled on the current medication regimen. She is not taking any hydrochlorothiazide. She takes an excess free water which I asked her to restrict to 50-60 oz in 24 hours. I did not make any medication changes today. Follow-up blood work ordered. Follow-up appointment given in 6 months. Answered all questions Orders: Orders Creatinine Today I10 - Essential (primary) hypertension Calcium Today I10 - Essential (primary) hypertension Blood Urea Nitrogen Today I10 - Essential (primary) hypertension Electrolytes Today I10 - Essential (primary) hypertension Coding Level of Care Code Est Pt Level 4 (95381) Diagnoses Primary hypertension I10 Hypertension type: primary hypertension
[2023-10-28 10:58] VITALS: BP 148/60; PULSE 61; O2SAT 97; BMI 24.1
== END 2023-10-28 11:19 | disposition home or self-care (01) ==
PROVIDERS: PCP Internal Medicine; Visit Provider Internal Medicine Nephrology
DX: I10 Essential (primary) hypertension (principal)
CPT/HCPCS: 99214

== ENCOUNTER → 2023-10-28 10:55 | Outpatient (BNVA) | payer MEDICARE, SELFPAY | PROVIDERS: PCP Internal Medicine; Visit Provider Internal Medicine Nephrology | DX: I10 Essential (primary) hypertension (principal) | CPT/HCPCS: 99212 ==

== ENCOUNTER 2024-01-19 12:52 | Outpatient (AMB) | payer MEDICARE, SELFPAY ==
--- NOTE | 2024-01-19 13:01 | MHC.OFFVIS ---
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 At baseline, she is moderately controlled on Bevespi, Qvar, and albuterol MDI. She is under the care of Dr. Brewer and presents today for an acute visit. She reports over the last week increased chest tightness/chest congestion and dyspnea on minimal exertion, significantly affecting her ADLs. She has been using albuterol MDI q 4 hours with minimal effect. She denies cough, wheezing, fever or chills. Of note, patient undergoing chemotherapy and is scheduled this Wednesday for another round. [facility] Medical History (Updated 01/19/24 @ 13:36 by Sandra Mario NP) Sarcoma Asthma Dyspnea COPD (chronic obstructive pulmonary disease) Pulmonary nodules Family History Mother Cancer Father Hypertension Social History Patient Tobacco Use Status: Former Tobacco user Tobacco use type: Cigarette Years Smoked: 40+ years Physical Exam Vital Signs: Last Vital Signs Pulse 78 01/19/24 13:02 BP 138/60 01/19/24 13:02 Pulse Ox 90 L 01/19/24 13:02 Oxygen Delivery Method Room Air 01/19/24 13:02 BMI result Body Mass Index 24.1 Office Procedures Nebulizer Treatment Nebulizer Treatment 58588-Idqelqksr/MDI RX initial, or Nebulizer Subsequent Treatment Office Meds ipratropium 0.5 mg-albuterol 3 mg (2.5 mg base)/3 mL nebulization soln Performing Provider: Sanrda Mario NP Performing Location: [facility] Administered by: Yudi Conley LPN on 01/19/24 13:32 Dose Route Admin Location Dispensed Lot Number Expiration Date [employer] 3 mL inhalation 3 mL [id number] 05/15/25 22477-692-92 [employer] 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 No BLE edema and denies orthopnea. DuoNeb given in office with significant improvement, will provide nebulizer for home use and send DuoNeb to be used PRN. Will also send doxcycline, prednisone and patient was given order to obtain CXR at [facility], due to insurance coverage can not obtain through [facility].. Patient presented in wheelchair and upon standing to be weighed patient desaturated to 88% with minimal activity. Will send order for supplemental oxygen to be used 2L with any exertion and reassess at next visit for continued use. She is aware if symptoms worsen to seek emergent care and to call office if no improvement in symptoms. All questions were answered and patient is in agreement of plan. Will schedule close follow up. Orders: Orders AMB Nebulizer Treatment 01/19/24 J44.1 - Chronic obstructive pulmonary disease with (acute) exacerbation, J45.41 - Moderate persistent asthma with (acute) exacerbation XR chest 2V 01/19/24 R09.89 - Other specified symptoms and signs involving the circulatory and respiratory systems Medications: New doxycycline hyclate 100 mg PO BID 20 caps 0RF ipratropium-albuterol 0.5 mg-3 mg(2.5 mg base)/3 mL 3 mL inhalation BID PRN 180 mL 0RF wheezing prednisone 40 mg (2 x 20 mg) PO DAILY 10 tabs 0RF Coding Level of Care Code Est Pt Level 4 (89549) Complex EM visit Add On G2211 Diagnoses Dyspnea on exertion R06.00 Dyspnea type: dyspnea on exertion Chronic obstructive pulmonary disease with acute exacerbation J44.1 COPD type: COPD with acute exacerbation 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
[2024-01-19 13:02] VITALS: BP 138/60; PULSE 78; O2SAT 90; BMI 24.1
--- OUTSIDE RECORDS SUMMARY | 2024-01-25 19:18 | XMS_ITS ---
Author Organization [facility] Campbell[facility] Address [address] [place] [address] Care Team Providers Care Line Fisher Name Role Phone Vidal Payan MD Primary Care Provider Unavail able Carla Johnson Unavailable [phone] Allergies Allergen (clinical drug ingredient) Drug/Non Drug Allergy documented on EMR Reaction Allergy Type Onset Date Status Penicillin Unknown Drug Allergy Active REASON FOR VISIT Pcp-09/01/23, Skin problem Medications Medication SIG (Take, Route, Frequency, Duration) Notes Start Date End Date Status Qvar 2023 Active Bevespi Aerosphere 9-4.8 MCG/ACT INHALE 2 PUFFS BY MOUTH TWICE DAILY Inhalation for 90 Days Active Calcium 600 MG 1 tablet with meals Orally Twice a day for 30 day(s) 2023 Active Arthritis Pain 2023 Acti ve Albuterol Sulfate HFA 108 (90 Base) MCG/ACT INHALE 1 TO 2 PUFFS BY MOUTH EVERY 4 TO 6 HOURS NEEDED Inhalation for 16 Days Active Turmeric Curcumin 500 MG as directed Orally 2023 Active Magnesium 400 MG as directed Orally 2023 Active Vision Select 2023 Activ e Carvedilol 12.5 MG Oral for 90 Days Active Eliquis 2.5 MG TAKE 1 TABLET BY RAZ TH TWICE DAILY Oral for 30 Days Active Rosuvastatin Calcium 20 MG TAKE 1 TABLET BY MOUTH EVERY DAY Oral for 90 Days Active traMADol HCl 50 MG 1 tablet as needed Orally Once a day Active Fluticasone Propionate 50 MCG/ACT Nasal for 90 Days Active Donepezil HCl 10 MG TAKE 1 TABLET BY RAZ TH EVERY DAY AT BEDTIME Oral for 90 Days Active amLODIPine Besylate 5 MG TAKE 1 TABLET B Y MOUTH EVERY DAY Oral for 60 Days Active Betamethasone Active Aspirin Low Dose 81 MG 1 tablet Orally O nce a day for 30 day(s) 2023 Not-Taking Alendronate Sodium 70 MG Oral for 84 Days Not-Taking Doxycycline Monohydrate 100 MG 1 capsule Orally Once a day for 10 days 08/23/2023 Active Social History Tobacco Use: Social History Observation Description Date Details (start date - stop date) Former Smoker NA - NA Tobacco Use/Smoking Question Answer Notes Are you a: former smoker Additional Findings: Tobacco Non-User Current no n-smoker Tobacco use other than smoking: Question Answer Notes Are you an other tobacco user? No Vital Signs Height 5 ft in 09/28/2023 Weight 120 lbs 09/28/2023 BMI 23.43 kg/m2 09/28/2023 Encounters Encounter Location Date Provider Diagnosis [facility] [address] [place] [address] 09/28/2023 Carla Johnson Atherosclerosis of knik artery of both lower extremities, with unspecified presence of clinical manifestation I70.203 and Pain in right toe(s) M79.674 Assessments Encounter Date Diagnosis (ICD Code) Assessment Notes Treatment Notes Treatment Clinical Notes Section Notes 09/28/2023 Atherosclerosis of knik artery of both lower extremities, with unspecified presence of clinical manifestation (ICD-10 - I70.203) 09/28/2023 Pain in right toe(s) (ICD-10 - M79.674) Plan Of Treatment Next Appt Details Follow Up: prn, Reason: Provider Name:Carla vasquez, 03/01/2024 03:00:00 PM, [address] [place], [address], Progress Notes * Elizabeth ANDERSENOB:[birth year] (83 yo F)Acc No.[id number]:09/28/2023 Progress Note Patient:?Raquel Andersen Provider:?Carla Johnson DPM :1940???Age:83 Y???Sex:Female D ate:09/28/2023 Address:[address] [place], [place] [id number] Pcp:Viadl Payan MD Subjective: * Chief Complaints: * ???Pcp-09/01/23Skin problem * HPI: ???Skin problems:?Location:?Right , 1st.?Course:?resolved.?Treatments:?I&D, soaks, abx?.? * ROS:?General/Constitutional:?Nausea?denies, denies, denies.?Vomiting?denies, denies, denies.?Hunger Thirst?denies, denies, denies.?Loss appetite?denies, denies, denies.?Chills?denies, denies, denies.?Fatigue?denies, denies, denies.?Fever?denies, denies, denies.?Night Sweats?denies, denies, denies.?Unexplained weight loss?denies, denies, denies.?Unexplained weight gain?denies, denies, denies.?HEENTM:?Dentures?denies, denies, denies.?Dizziness?denies, denies, denies.?Glasses/contacts?denies, denies, denies.?Retinopathy?denies, denies, denies.?Blurred/double vision?denies, denies, denies.?TMJ?denies, denies, denies.?Discharge/drainage?denies, denies, denies.?Implants?denies, denies, denies.?Sore throat?denies, denies, denies.?Dental implants?denies, denies, denies.?Hard of hearing ?denies, denies, denies.?Difficulty chewing/swallowing/speaking denies, denies, denies.?Nose bleeds?denies, denies, denies.?Sore mouth?denies, denies, denies.?Respiratory:?On Oxygen?denies, denies, denies.?Pneumonia/pleurisy?denies, denies, denies.?Bronchitis?denies, denies, denies.?Emphysema?denies, denies, denies.?Coughing?denies, denies, denies.?Cough blood?denies, denies, denies.?Shortness of breath?denies, denies, denies.?Wheezing?denies, denies, denies.?Cardiovascular:?Pacemaker?denies, denies, denies.?MVP?denies, denies, denies.?WPW?denies, denies, denies.?CHF?denies, denies, denies.?Heart attack?denies, denies, denies.?Septal defect?denies, denies, denies.?Rapid beat denies, denies, denies.?Chest pain ?denies, denies, denies.?Atrial Fib.?denies, denies, denies.?Murmur/Palpitations?denies, denies, denies.?Gastrointestinal:?Hemorrhoids?denies, denies, denies.?Stomach/Abdominal pain?denies, denies, denies.?Dark blood stool?denies, denies, denies.?Irritable bowel ?denies, denies, denies.?Constipation?denies, denies, denies.?Diarrhea?denies, denies, denies.?Hematology:?Swelling?denies, denies, denies.?Clots?denies, denies, denies.?Varicose Veins?denies, denies, denies.?Bruising?denies, denies, denies.?Bleeding problem?denies, denies, denies.?Genitourinary:?Blood urine?denies, denies, denies.?Frequent/Painfu/urination/bladder control?denies, denies, denies.?Kidney stones?denies, denies, denies.?Infection (UTI)?denies, denies, denies.?Nephropathy?denies, denies, denies. sex trans dis (STD)?denies, denies, denies.?Prostate?denies, denies, denies.?Musculoskeletal:?Hammertoes?denies, denies, denies.?Bunions?denies, denies, denies.?Back Pain?denies, denies, denies.?Muscle Cramps/ Resting?denies, denies, denies.?Muscle cramps / walking?denies, denies, denies.?Generalized aches and pains?admits, admits, admits.?Weakness?denies, denies, denies.?Integ.:?Saeed?denies, denies, denies.?Scars?denies, denies, denies.?Corns/calluses?denies, denies, denies.?Ingrown nails?denies, admits, admits.?Painful nails?denies,admits,admits.?Open Sores?denies, denies, denies.?Rashes?denies, denies, denies.?Neurologic:?Difficulty sleeping?denies, denies, denies.?Brain disorder?denies, denies, denies.?Numbness?denies, denies, denies.?Balance trouble?denies, denies, denies.?Confusion?denies, denies, denies.?Fainting/blackouts?denies, denies, denies.?Tingling?admits, admits, admits.?Tremors?denies, denies, denies.? * Medical History:? * Surgical History:?biopsy Juan F g surgery 07/29/23 * Hospitalization/Major Diagno stic Procedure:?Denies Past Hospitalization * Family History:?Mother: dece ased, cancer, diagnosed with Other specified conditions influencing health status.?Father: .? * Social History:?Tobacco Use:?Tobacco Use/Smoking?Are you a:?former smoker ?Additional Findings: Tobacco Non-User?Current non-smoker ?Tobacco use other than smoking?Are you an other tobacco user??No ???Miscellaneous:?Caffeine: yes, frequency: tea 1-2 cups per day. ?Children: yes, 3. ?Exercise: yes, exercise/dancing,. ?Marital status: . 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 * Medications:?TakingBetametha sone traMADol HCl 50 MG Tablet 1 tablet as needed Orally Once a dayRosuvastatin Calcium 20 MG Tablet TAKE 1 TABLET BY MOUTH EVERY DAY Oral amLODIPine Besylate 5 MG Tablet TAKE 1 TABLET BY MOUTH EVERY DAY Oral Donepezil HCl 10 MG Tablet TAKE 1 TABLET BY MOUTH EVERY DAY AT BEDTIME Oral Fluticasone Propionate 50 MCG/ACT Suspension Nasal Eliquis 2.5 MG Tablet TAKE 1 TABLET BY MOUTH TWICE DAILY Oral Carvedilol 12.5 MG Tablet Oral Vision Select Magnesium 400 MG Tablet as directed Orally Turmeric Curcumin 500 MG Capsule as directed Orally Calcium 600 MG Tablet 1 tablet with meals Orally Twice a dayBevespi Aerosphere 9-4.8 MCG/ACT Aerosol INHALE 2 PUFFS BY MOUTH TWICE DAILY Inhalation Qvar Albuterol Sulfate HFA 108 (90 Base) MCG/ACT Aerosol Solution INHALE 1 TO 2 PUFFS BY MOUTH EVERY 4 TO 6 HOURS NEEDED Inhalation Arthritis Pain Doxycycline Monohydrate 100 MG Capsule 1 capsule Orally Once a dayTaking Betamethasone Taking traMADol HCl 50 MG Tablet 1 tablet as needed Orally Once a dayTaking Rosuvastatin Calcium 20 MG Tablet TAKE 1 TABLET BY MOUTH EVERY DAY Oral Taking amLODIPine Besylate 5 MG Tablet TAKE 1 TABLET BY MOUTH EVERY DAY Oral Taking Donepezil HCl 10 MG Tablet TAKE 1 TABLET BY MOUTH EVERY DAY AT BEDTIME Oral Taking Fluticasone Propionate 50 MCG/ACT Suspension Nasal Taking Eliquis 2.5 MG Tablet TAKE 1 TABLET BY MOUTH TWICE DAILY Oral Taking Carvedilol 12.5 MG Tablet Oral Taking Vision Select Taking Magnesium 400 MG Tablet as directed Orally Taking Turmeric Curcumin 500 MG Capsule as directed Orally Taking Calcium 600 MG Tablet 1 tablet with meals Orally Twice a dayTaking Bevespi Aerosphere 9-4.8 MCG/ACT Aerosol INHALE 2 PUFFS BY MOUTH TWICE DAILY Inhalation Taking Qvar Taking Albuterol Sulfate HFA 108 (90 Base) MCG/ACT Aerosol Solution INHALE 1 TO 2 PUFFS BY MOUTH EVERY 4 TO 6 HOURS NEEDED Inhalation Taking Arthritis Pain Taking Doxycycline Monohydrate 100 MG Capsule 1 capsule Orally Once a dayNot-Taking/PRNAlendronate Sodium 70 MG Tablet Oral Aspirin Low Dose 81 MG Tablet Chewable 1 tablet Orally Once a dayMedication List reviewed and reconciled with the patientNot-Taking/PRN Alendronate Sodium 70 MG Tablet Oral Not-Taking/PRN Aspirin Low Dose 81 MG Tablet Chewable 1 tablet Orally Once a dayMedication List reviewed and reconciled with the patient * Allergies:?Penicillinyes[All ergies Verified] Objective: * Vitals:?Ht: 5 ft, Wt: 120, B ID: 23.43, Shoe size: 6, Ht-cm: 152.4 cm, Wt-k.43 kg. * Examination: ???General Examination: ?GENERAL APPEARANCE:?Reveals a pleasant, alert, well nourished, well- developed, well hydrated individual, who demonstrates proper attention to hygiene/body habitus, and is in no acute distress, Pt serves as own historian for office visit today.?ORIENTED:?person,place, and time.?Neurological: ?SENSORY:?neurological exam reveals intact sensorium, pain sensation normal, vibration sensation intact, pinprick sensation is normal in the lower extremities, anesthesia, burning, tingling, B/L.?Vascular: ?DP PULSES:? 0/4, B/L.?PT PULSES:? 0/4, B/L.?CAPILLARY FILL TIME:? 3 secs. per digit, B/L.?SKIN TEMPERTURE GRADIENT OF THE LOWER EXTERMITIES:? decreased, cool to cool, proximal to distal, B/L.?HAIR GROWTH/TEXTURE/ELASTICITY/TURGOR:? decreased, B/L.?Dermatologic: ?SKIN FINDINGS:? Nail bed healed T5.? Assessment: * Assessment: 1.?Pain in right toe(s) - M7 9.674 (Primary)?2.?Atherosclerosis of knik artery of both lower extremities, with unspecified presence of clinical manifestation - I70.203? Plan: * Treatment: * Procedure Codes:? * Preventive Medicine:? ??Counseling:?Discussion:?-12: Office or other outpatient visit for the evaluation and management of an established patient, which required a medically appropriate history and/or examination and STRAIGHTFORWARD level of MEDICAL DECISION MAKING, 1 SELF-LIMITED OR MINOR PROBLEM, MINIMAL- NO AMOUNT/COMPLEXITY OF DATA TO BE REVIEWED/ANALYZED, AND MINIMAL RISK OF COMPLICATION/MORBIDITY. The visit on the day of the encounter encompassed interpreting the data and educating the patient as to the nature of their condition, treatment options available according to their individual PMH, meds, allergies, and overall health/living conditions, as well as any potential risks or complications that may occur from a failure to adhere to, and participate in, the recommended course of therapy. The discussion included a complete verbal, and/or written explanation of the examination results, any x-rays taken, the proposed diagnosis, and outline of the treatment plan. A schedule for future care needs was also explained. The patient verbalized an understanding of the instructions at this time and agreed to be an active participant in their treatment. If the patient should think of any questions or concerns after the visit, I have encouraged the patient to call the office, Patients podiatric issue has improved, they should call the office with any future issues or concerns.? * Follow Up:?prn * Images: * Sign off status: Completed true * Provider:?Carla Johnson DPM Date:? Generated for Kenya zavala/Obie/Burakitting on:?01/25/2024 07:18 PM EST History and Physical Notes * HPI (History of Present Illness) Category Sub-Category Detail Notes Category Not es Skin problems Location: Right , 1st Course: resolved Treatments: I&D, soaks, abx Examination Category Sub-Category Detail Notes Category Not es Neurological SENSORY: neurological exa m reveals intact sensorium, pain sensation normal, vibration sensation intact, pinprick sensation is normal in the lower extremities, anesthesia, burning, tingling, B/L Dermatologic SKIN FINDINGS: Nail bed healed T5 General Examination GENERAL APPEARANCE: Reveals a pleasant, alert, well nourished, well-developed, well hydrated individual, who demonstrates proper attention to hygiene/body habitus, and is in no acute distress, Pt serves as own historian for office visit today ORIENTED: person,place, and ti me Vascular DP PULSES(B): 0/4, B/L PT PULSES(B): 0/4, B/L CAPILLARY FILL TIME: 3 secs. per digit, B/L TEMPERTURE GRADIENT(C): decreased, cool to cool, proximal to distal, B/L TROPHIC CONDITION-TEXTURE/ELASTICITY/TURGOR/HAIR GROWTH(B): decreased, B/L
--- OUTSIDE RECORDS SUMMARY | 2024-01-25 19:18 | XMS_ITS | Continuity of Care Document ---
Author Organization [facility], Ar in - [facility] Address [address] [place] [phone] Care Team Providers Care Cane Packer Name Role Phone [facility] CARE TEAM OTHER MAYNOR MITCHELL Primary Care Provider Assessment Encounter Date Assessment Date Assessment LastModified by Organization Details LastModified Time 01/25/2024 01/25/2024 I provided real -time medical direction via phone for this encounter, and was available for additional phone based assistance as needed. I have reviewed and agree with the Assessment and Plan as documented by the Silk Printer. We discussed the diagnostic uncertainty of home visits and the risk associated with this. In this case the patient and I felt this to be an acceptable and reasonable amount of risk given the benefit of avoiding an ED visit. The patient given the opportunity to ask questions. Advised if develops increasing or differing CP/severe SOB/turning blue/uncontrolle d n/v/d / AMS/ syncope/ hi fever unresponsive to APAP to call 911- verbalized understanding of instructions [email or web address] Not available 01/25/2024 14:41:41 Plan of Treatment Reminders Order Date Submit Date Provider Last Modified By Organization Details Last Modified Time Details Appointments Urgent Care 2023 10:55A M Nancy Wakefield MD Not available Not available Not available Lab rapid SARS CoV 2 Ag, QL IA, respirato ry specimen 2023 024 [email or web address] [facility], [address] [place] [address], [phone], 01/25/2024 11:19:45 rapid flu (A+B) 2023 024 [email or web address] [facility], [address] [place] [address], [phone], 01/25/2024 11:19:45 Referral None recorded. Procedures None recorded. Surgeries None recorded. Imaging electroca rdiogram 2023 [email or web address] [facility], [address] [place] [address], [phone], 01/25/2024 11:19:45 Medication Orders prednison e 20 mg tablet 2023 [email or web address] [id number], [address] [place], [place], [phone], 01/25/2024 11:19:45 prednison e 20 mg tablet 2023 YAEL [facility] #[id number], [address] [place], [place], [phone], 01/25/2024 11:19:55 Patient TargetsNo targets recorded. Patient InstructionsNo instructions recorded. Reason for Referral None Reported. Results Created Date Observation Date Name Description Value Unit Range Abnormal Flag Note LastModifiedBy Organization Detail LastModifiedTime 01/25/20 24 01/25/2024 rapid flu (A+B) Flu negati ve Not Available [facility] ed [address] [place] [address], [phone], 01/25/2024 11:01:21 01/25/20 24 01/25/2024 rapid SARS CoV 2 Ag, QL IA, respi rator y speci men rapid SARS CoV 2 Ag, QL IA, respiratory specimen negati ve Not Available [facility] ed [address] [place] [address], [phone], 01/25/2024 11:01:20 01/25/20 24 01/25/2024 elect yolanda [email or web address] am No observ ation record ed. [email or web address] [address], [phone], 01/25/2024 11:19:40 Result Notes None recorded. Procedures Surgical History None recorded. Imaging Results Imaging Date Name Status LastModified by Organization Details LastModified Time 01/25/2024 electrocardiogram completed [email or web address] [address], [place], [phone], 01/25/2024 11:19:40 Procedure Notes None recorded. Medical Equipment None Reported. Allergies Allergen ID Allergen Name Allergen Category Reaction Reaction Severity Criticality Documentation Date Start Date Code Code System Note Provider Name and Address Organization Details Recorded Time 95268 Medicinal product containin g penicilli n and acting as antibacte rial agent (product) medicatio n Not available Not available Not available 01/25/2024 62380 05 SNOMED Not Available [facility] - production 12:07:09 Medications Name Sig Start Date Stop Date Status Note LastModified by Organization Details LastModified Time nystatin 100,000 unit/mL oral suspension TAKE 0.5 MLS IN EACH SIDE OF CHEEK THREE TIMES DAILY FOR 30 DAYS active Not Available Not Available Not Available doxycycline hyclate 100 mg capsule TAKE 1 CAPSULE BY MOUTH TWICE DAILY active Not Available Not Available No t Available carvedilol 12.5 mg tablet TAKE 1 TABLET BY MOUTH TWICE DAILY active Not Available Not Available No t Available ipratropium 0.5 mg-albuterol 3 mg (2.5 mg base)/3 mL nebulization soln USE 3 ML VIA NEBULIZER TWICE DAILY NEEDED FOR WHEEZING active Not Available Not Available No t Available azithromycin 250 mg tablet active Not Available Not Available Not Available donepezil 10 mg tablet TAKE 1 TABLET BY MOUTH DAILY AT BEDTIME active Not Available Not Available N ot Available prednisone 20 mg tablet Take 1 tablet every day by oral route after meal(s) for 4 days, for copd- to start 01/25 as had dose in-home today already. 2023 active Not Available Not Available Not Avai lable alendronate 70 mg tablet TAKE 1 TABLET BY MOUTH 1 TIME A WEEK active Not Available Not Available Not Available betamethason e valerate 0.1 % lotion APPLY EXTERNALLY DAILY X 7 DAYS active Not Available Not Available No t Available amlodipine 5 mg tablet TAKE 1 TABLET BY MOUTH DAILY active Not Available Not Available Not Available prochlorpera zine maleate 10 mg tablet active Not Available Not Available Not Available doxycycline monohydrate 100 mg tablet TAKE 1 TABLET BY MOUTH TWICE DAILY FOR 14 DAYS active Not Available Not Available No t Available tramadol 50 mg tablet TAKE 1 TABLET BY MOUTH TWICE DAILY NEEDED active Not Available Not Available No t Available lidocaine-pr ilocaine 2.5 %-2.5 % topical cream APPLY TOPICALLY NEEDED active Not Available Not Available No t Available doxycycline monohydrate 100 mg capsule TAKE 1 CAPSULE BY MOUTH DAILY FOR 10 DAYS active Not Available Not Available Not Available cephalexin 500 mg capsule TAKE 1 CAPSULE BY MOUTH THREE TIMES DAILY FOR 7 DAYS active Not Available Not Available N ot Available dexamethason e 4 mg tablet TAKE 1 TABLET BY MOUTH TWICE DAILY WITH FOOD ON THE DAY BEFORE AN DAY AFTER PEMETREXED PER ADMIN INSTRUCTION S active Not Available Not Available No t Available folic acid 1 mg tablet TAKE 1 TABLET BY MOUTH DAILY active Not Available Not Available Not Available codeine 10 mg-guaifenes in 100 mg/5 mL oral liquid TAKE 5 ML BY MOUTH EVERY 6 HOURS NEEDED FOR COUGH active Not Available Not Available No t Available mupirocin 2 % topical ointment APPLY TO SURGICAL SITES TWICE DAILY UNTIL FULLY HEALED active Not Available Not Available No t Available gabapentin 100 mg capsule TAKE 1 CAPSULE BY MOUTH THREE TIMES DAILY active Not Available Not Available Not Available levofloxacin 500 mg tablet TAKE 1 TABLET BY MOUTH DAILY FOR 8 DAYS active Not Available Not Available N ot Available albuterol sulfate HFA 90 mcg/actuatio n aerosol inhaler INHALE 2 PUFFS BY MOUTH EVERY 4 TO 6 HOURS NEEDED active Not Available Not Available No t Available ipratropium bromide 42 mcg (0.06 %) nasal spray USE 2 SPRAYS IN EACH NOSTRIL THREE TIMES DAILY active Not Available Not Available No t Available fluticasone propionate 50 mcg/actuatio n nasal spray,suspen clary SHAKE LIQUID AND USE 2 SPRAYS IN EACH NOSTRIL DAILY active Not Available Not Available No t Available oxycodone 5 mg tablet active Not Available Not Available No t Available cyclobenzapr ine 5 mg tablet TAKE 1 TABLET BY MOUTH TWICE DAILY FOR 10 DAYS NEEDED active Not Available Not Available No t Available rosuvastatin 20 mg tablet TAKE 1 TABLET BY MOUTH EVERY DAY active Not Available Not Available No t Available Eliquis 2.5 mg tablet TAKE 1 TABLET BY MOUTH TWICE DAILY active Not Available Not Available No t Available Bevespi Aerosphere 9 mcg-4.8 mcg HFA aerosol inhaler INHALE 2 PUFFS BY MOUTH TWICE DAILY active Not Available Not Available No t Available Qvar RediHaler 80 mcg/actuatio n HFA breath activated aerosol INHALE 1 PUFF BY MOUTH TWICE DAILY active Not Available Not Available No t Available Vitals Date Recorded Heart rate Oxygen saturation Oxygen saturation in Arterial blood by Pulse oximetry Inhaled oxygen flow rate Body weight Respiratory rate Body height Heart rate Body temperature Oxygen saturation Oxygen saturation in Arterial blood by Pulse oximetry Inhaled oxygen flow rate Systolic blood pressure Diastolic blood pressure Provider Name and Address Organization Details Last Updated DateTime 4 109 /min 100 % 100 % 2 L/min 61805.4 48 g 20 /min 152.4 cm 115 /min 98.4 [degF] 100 % 100 % 2 L/min 110 mm[Hg] 65 mm[Hg] Not Available [facility] - production 4 10:55:48 Social History None recorded. Functional Status None recorded. Mental Status None recorded. Family History Nothing Reported. Medical History No medical history recorded. Gynecological HistoryNo gynecological history recorded. Obstetrics History GPAL:G 0 P 0 0 0 0 Past Encounters Encounter ID Performer Location Encounter Start Date Encounter Closed Date Diagnosis/Indication Diagnosis SNOMED-CT Code Diagnosis ICD10 Code [id number] Nancy Wakefield MD [facility] - [facility] [address] [place] [phone] 01/25/2024 10:55:38 01/25/2024 14:42:13 Dyspnea on exertion 93811015 R06.09 Health Concerns Section Related Observation LastModified by Organization Detai ls LastModified Time None Recorded Concern Status LastModified by Organization Details LastModified Time None Recorded Payers Encounter Date Sequence Insurance Name Policy Number Policy [employer]razas Covered Member ID Terrazas Member ID Guarantor Name 01/25/2024 1 [facility] - MEDICARE PREFERRED (MEDICARE REPLACEMENT HMO) [facility] Raquel Andersen [id number] Raquel Andersen Notes Date Note Type Note Provider Name and Address Organization Details Recorded Time 01/25/2024 text/html [facility] Nurse Triage Notes (Hannah Doty): Reason For Request: Patient is short of breath, and has a history of breathing problems. Patient Reports: Cough, fever greater than 2 days ; COPD; Sputum increase ; Shortness of breath with exertionDenies: Increased work of breathing/labored ? with or without fever Unable to speak in full sentences without distress Discoloration of skin -cyanosis Needs to sleep sitting up, can? t catch breath Shortness of breath in setting of confusion History of asthma, increased use of inhaler COVID Exposure Cough Pain with inspiration Chief Complaints: Breathing problemsPMH: Chronic Obstructive Pulmonary Disease (COPD), CancerComments: [employer] Worker verified the name//address and phone number. Pt calling for sob. On the 4th of this month, she went to the hospital for sobbing. She was supposed to go to a specialist but could not get there. She was given a neb and o2 but did not feel that she was getting better. She has upper airway congestion while talking. She also needed to use her rescue inhaler. She is currently wearing 2NC . She does not have a cough. she denies any fever/ chills. 02 sat 95 % , HR 62 . She does have a history of lung cancer , she is still in active treatment. She does have allergies and will find the list for the medic. She has not called her collar tacker as he is booked and unable to get in. Education provided on the response time and the Patient was advised to monitor reported s/s and seek emergency treatment if needed Silk Printer Organization Information for Florencio Hartley Legal Name: [employer] ? Address: [address] [place] [id number], Medical Director: Pradeep Farris [facility] No.: [id number] Silk Printer POC Test Results from Florencio Hartley EKG (10:44:28)EKG test performed.Attachmen ts uploaded as part of this test result can be found under Documents section. Rapid COVID antigen (11:02:55) COVID: - Rapid influenza antigen (11:02:57) Flu: - ................... ................... ................... ................... ................... ................... ................... ........ Silk Printer Note From Florencio Hartley: [facility] makes pt contact. She opens the door and lets [facility] inside. She is wearing a NC and her pajamas. She is well-appearing and not in acute distress. No stridor or sonorous respirations are present. She is speaking in full sentences and answering questions using a linear and logical thought pattern. She is ambulatory w/ a normal gait. No facial droop. slurred speech, or one-sided weakness are noted and she is not bleeding anywhere. Pt endorses feeling very sob upon waking this morning around 0400. She says she was seen on 01/20 due to her increased SOB at that time and was not dx w/ anything. She asked to be given home O2 and she was provided w/ O2 and several NC. She was also given a SVN and albuterol for a breathing tx BID as well as a rescue albuterol inhaler for emergencies. She says she was assisted in setting up and self-administering her breathing tx, but didn't feel as if she was well coached. She doesn't feel the breathing txs are helping her and she is not getting better. This morning she used her rescue inhaler for the first time and she is feeling much better in the presence of [facility]. She informs [facility] how she has been using the SVN and [facility] determines she is not using it correctly. Pt is denying any recent hx of fever/chills, n/v/d, or cp other than w/ coughing. She rates how she felt this morning as 10/10 and currently around 7/10. Pt has a loud productive cough and endorses clear sputum. She feels her sob gets worse w/ exertion and is unable to get from her bed to the bathroom and back w/o feeling more sob. Pt consents to evaluation and treatment today.[facility] gathers pt consent and vital signs. Pt is physically assessed. Lung sounds are clear on the L w/ rhonchi in the R lower lobe. No wheezing noted at this time. Remaining physical exam is unremarkable. 12-lead EKG is also obtained. [facility] contacts [facility] and discusses the above findings. [facility] orders a flu and COVID swab as well as an assessment of exertional RR, HR, and SpO2. [facility] orders [facility] provide pt w/ 40mg prednisone PO for now and prescribes 40mg BID x4 days and calls in Rx to pt's pharmacy. [facility] also orders pt to use her SVN or rescue inhaler QID. [facility] assists pt w/ how to properly use her SVN and leaves a new neb kit w/ pt in case she needs it. Pt is also informed of red flags to monitor herself for up to and including severe cp, high fevers, AMS, and syncope. Pt thanks [facility] for coming.[facility] is clear. Report completed by BOOM Hartley [id number]. [facility] Lab Orders: rapid SARS CoV 2 Ag, QL IA, respiratory specimen: Performed ................... ................... ................... ................... ................... ................... ................... ........ [facility] Consulted: Nancy Wakefield ................... ................... ................... ................... ................... ................... ................... ........ Disposition: Fulfilled SEGMD: As above. Patient endorses chest pain as an irritation only when she coughs. She is only used her rescue inhaler once and was not using the nebulizer correctly and was only using it twice a day. She uses 2 pillows at night chronically has not had any increased orthopnea. She awoke at 4 AM this morning to go to the bathroom and felt short of breath returning to bed and had some difficulty falling back asleep. She denies sore throat, sinus congestion, sweating, fever, chills, nausea vomiting or diarrhea. Patient is apparently already on doxycycline twice a day. Nancy Wakefield MD [address] [place] [address],[address], [place], [phone], untapt 01/25/2024 14:42:09 OBGyn Episode No OBEpisode recorded.
--- OUTSIDE RECORDS SUMMARY | 2024-01-25 19:18 | XMS_ITS ---
Author Organization [facility] Address [address] [place] [address] Care Team Providers Care Inspector Casing Name Role Phone Vidal Payan MD Primary Care Provider Unavail Carla Hein Unavailable [phone] REASON FOR VISIT pt bought nail luxembourgish top coat clear and betadine Encounters Encounter Location Date Provider Diagnosis [facility] [address] [place] [address] 09/07/2023 Carla Johnson Plan Of Treatment Next Appt Details Provider Name:Carla vasquez, 03/01/2024 03:00:00 PM, [address] [place], [phone], Progress Notes * Elizabeth ANDERSENOB:[birth year] (83 yo F)Acc No.[id number]:09/07/2023 Patient:?Raquel Andersen :1940???Age:83 Y???Sex:Female Address:[address] [place] [address] [place] [address] * true * Date:? Generated for Printi ng/Faelissag/eTransmitting on:?01/25/2024 07:18 PM EST
--- OUTSIDE RECORDS SUMMARY | 2024-01-25 19:18 | XMS_ITS | Data Portability ---
Author Organization [facility]vis [facility] Address [address] [place] [address] Care Team Providers Care Beef Specialist Name Role Phone MAYNOR MITCHELL Primary Care Provider Assessment No assessment recorded. Plan of Treatment Reminders Order Date Submit Date Provider Last Modified By Organization Details Last Modified Time Details Appointments None record ed. Lab None record ed. Referral None record ed. Procedures None record ed. Surgeries None record ed. Imaging None record ed. Medication Orders None record ed. Patient TargetsNo targets recorded. Patient Instructions Encounter Date Encounter Id Patient Instructions Last Modified By Organization Details Last Modified Time 09/04/2022 [id number] cuts: care instructions [email or web address] Not available 09/04/2022 13:42:17 KEEP AREA CLEAN AND DRY. MAY APPLY SMALL AMOUNT OF TRIPLE ANTIBIOTIC OINTMENT TO AREA DAILY. LET AREA AIR DRY MUCH POSSIBLE. COVER AREA IF OUT IN PUBLIC. NO ANIMIALS AROUND WOUND. MAY WASH AREA WITH GENTLE ANTIBACTERIAL SOAP OR BABY SHAMPOO. SUTURES OUT INSTRUCTED. KEEP EXTREMITY ELEVATED AVOID DISHWATER, BATH TUB WATER, POOL OR DAWSON WATER. MONITOR FOR SIGNS OF INFECTION: FEVER, REDNESS, SWELLING, YELLOW DRAINAGE, RED STREAKING, INCREASED PAIN OR DECREASED MOVEMENT OF EXTREMITY. GO TO ER IMMEDIATELY. IF PRESCRIBED ANTIBIOTIC: TAKE ALL OF ANTIBIOTIC DIRECTED. MAY CHANGE DRESSING DAILY NEEDED. MAY RETURN IN 2 TO 3 DAYS FOR WOUND RECHECK NEEDED. [email or web address] Not available 09/04/2022 13:39:57 Reason for Referral None Reported. Problems Name Problem SNOMED Code Status Onset Date Resolution Date Notes Provider Name and Address Organization Details Recorded Time Hypertensive disorder 63496016 Active 2022 [facility] 13:12:35 Memory impairment 625723303 Active 2022 Geraldine Kinney null, PA - [facility] 13:12:41 Environmental allergy 480276835 Active 2022 Geraldine Sage null, PA - [facility] 13:12:46 Chronic obstructive pulmonary disease 33177147 Active 2022 Geraldine Kinney null, PA - [facility] 13:12:55 Hypercholester olemia 81953468 Active 2022 Geraldine Kinney null, PA - [facility] 13:13:00 Pain 30051463 Active 2022 Geraldine Sage null, PA - [facility] 13:13:11 Osteoporosis 59684726 Active 2022 Geraldine Kinney null, PA - [facility] 13:13:17 Pulmonary embolism 45962978 Active 2022 Geraldine Sage null, PA - [facility] 13:13:40 Problem Notes None recorded. Procedures Surgical History Date Name Laterality Status Provider Name and Address Organization Details Recorded Time 3 Wound Dressing completed Bola Monahan NP [address] [place], [address], [place] - [facility] 09/04/2022 13:42:03 3 Wound Care [facility] completed Bola Monahan NP [address] [place], [address], [place] - [facility] 09/04/2022 13:41:28 Imaging Results None recorded. Procedure Notes None recorded. Medical Equipment None Reported. Allergies Allergen ID Allergen Name Allergen Category Reaction Reaction Severity Criticality Documentation Date Start Date Code Code System Note Provider Name and Address Organization Details Recorded Time 067961 Medicinal product containin g penicilli n and acting as antibacte rial agent (product) medicatio n Not available Not available Not available 09/04/2022 37832 05 SNOMED Geraldine Kinney null, PA - [facility] 13:12:25 Medications Name Sig Start Date Stop Date Status Note LastModified by Organization Details LastModified Time carvedilol 12.5 mg tablet Take 1 tablet twice a day by oral route. active Not Available Not Available No t Available alendronate 70 mg tablet Take 1 tablet every week by oral route. active Not Available Not Available No t Available Jasper Low Dose Aspirin 81 mg tablet,delay ed release Take 1 tablet every day by oral route. active Not Available Not Available No t Available donepezil 10 mg disintegrati ng tablet Place 1 tablet every day by translingua l route. active Not Available Not Available No t Available magnesium active Not Available Not Michaela ilable Not Available calcium active Not Available Not Avail able Not Available tramadol active Not Available Not Avai lable Not Available amlodipine active Not Available Not Av ailable Not Available rosuvastatin active Not Available Not Available Not Available Eliquis 2.5 mg tablet Take 1 tablet twice a day by oral route. active Not Available Not Available No t Available Flonase Allergy Relief 50 mcg/actuatio n nasal spray,suspen clary [place] 1 spray every day by intranasal route. active Not Available Not Available No t Available Bevespi Aerosphere 9 mcg-4.8 mcg HFA aerosol inhaler Inhale 2 puffs twice a day by inhalation route. active Not Available Not Available No t Available turmeric 500 mg-black pepper extract 3 mg capsule Take by oral route. active Not Available Not Available Not Available Qvar RediHaler 40 mcg/actuatio n HFA breath activated aerosol Inhale 2 puffs twice a day by inhalation route. active Not Available Not Available No t Available albuterol 90 mcg-budesoni de 80 mcg/actuatio n HFA aerosol inhaler Inhale by inhalation route. active Not Available Not Available No t Available Vitals Date Recorded Body weight Body mass index (BMI) Body height Respiratory rate Oxygen saturation Oxygen saturation in Arterial blood by Pulse oximetry Heart rate Body temperature Systolic blood pressure Diastolic blood pressure Provider Name and Address Organization Details Last Updated DateTime 3 19977.6 4 g 24.6 kg/m2 152.4 cm 20 /min 98 % 98 % 66 /min 97.6 [degF] 146 mm[Hg] 83 mm[Hg] Geraldine JUARES - [facility] 3 13:15:48 Social History Question Answer Notes LastModified by Organizat ion Details LastModified Time Tobacco Smoking Status Never Smoker BLANQUITA Edwards - [facility] 09/04/2022 13:13:59 What Is Your Level Of Alcohol Consumption? None Information not available 09/04/2022 Have You Had Direct Contact, Or Contact During Intimacy, With Monkeypox Rash, Scabs, Or Body Fluids From A Person With Monkeypox? No Information not available 09/04/2022 Do You Use Any Illicit Or Recreational Drugs? No Information not available 09/04/2022 Have You Recently Traveled Abroad? No Information not available 09/04/2022 Do You Or Have You Ever Used Any Other Forms Of Tobacco Or Nicotine? No Information not available 09/04/2022 Sex: Unknown Functional Status None recorded. Mental Status None recorded. Family History Relationship Description Onset Age of this Age Resolved Age Notes LastModified by Organization Details LastModified Time Father No current problems or disability Not available 09/04 13:13:46 Mother No current problems or disability Not available 09/04 13:13:46 Medical History No medical history recorded. Gynecological History Statement/Question Response Is there any chance of ? No LMP N/A Obstetrics History GPAL:G 0 P 0 0 0 0 Past Encounters Encounter ID Performer Location Encounter Start Date Encounter Closed Date Diagnosis/Indication Diagnosis SNOMED-CT Code Diagnosis ICD10 Code [id number] [address] [place] [address] 08/21/2020 08:02:38 08/21/2020 09:21:01 [id number] [address] [place] [address] 08/02/2020 08:04:31 08/02/2020 09:26:42 [id number] [address] [place] [address] 01/26/2021 11:31:02 01/26/2021 12:47:12 [id number] Bola Monahan NP [address] [place] [address] 09/04/2022 13:01:52 09/04/2022 13:43:26 Tear of skin 547587223 T14.8XXA Health Concerns Section Related Observation LastModified by Organization Detai ls LastModified Time None Recorded Concern Status LastModified by Organization Details LastModified Time None Recorded Advance Directives Directive None Recorded Payers Encounter Date Sequence Insurance Name Policy Number Policy Terrazas Covered Member ID Terrazas Member ID Guarantor Name 08/21/2020 1 [facility] - MEDICARE PREFERRED (MEDICARE REPLACEMENT HMO) ARIC Raquel Salguero Ganesh [id number] 1 Raquel Andersen 01/26/2021 1 [facility] - MEDICARE PREFERRED (MEDICARE REPLACEMENT HMO) ARIC Raquel Salguero Ganesh [id number] 1 Raquel Anderesn 09/04/2022 1 [facility] - MEDICARE PREFERRED (MEDICARE REPLACEMENT HMO) DALILA Raquel Salguero Ganesh [id number] 1 Raquel Andersen Notes Date Note Type Note Provider Name and Address Organization Details Recorded Time 09/04/2022 text/html UC Wound/LacerationR eported bypatient.Locatio n:legs; left lower leg ecchymotic area started to bleed. Patient states she thinks she hit it with something and also on blood thinner. Quality:not bleeding; no undermining; no cellulitis; no drainage; no eschar; avulsion; pressure-induced skin injury Severity:mild Duration:2 days Onset/Timing:date of initial injury: 09/02/2022 Context:trauma Associated Symptoms:no fever; no numbness; no tingling; normal sensation;bruisin randee Monahan NP [address] [place], [address], [place] - [facility] 09/04/2022 13:42:44 OBGyn Episode No OBEpisode recorded.
--- OUTSIDE RECORDS SUMMARY | 2024-01-25 19:18 | XMS_ITS ---
Author Organization [facility] Address [address] [address] Care Team Providers Care Computer Science Instructor Name Role Phone Vidal Payan MD Primary Care Provider Unavail able Carla Johnson Unavailable [phone] Allergies Allergen (clinical drug ingredient) Drug/Non Drug Allergy documented on EMR Reaction Allergy Type Onset Date Status Penicillin Unknown Drug Allergy Active REASON FOR VISIT Pcp-11/25/23, At Risk Footcare, Painful Nail(s) aggravated by shoes and causing difficulty standing/walking. Medications Medication SIG (Take, Route, Frequency, Duration) Notes Start Date End Date Status Aspirin Low Dose 81 MG 1 tablet Orally O nce a day for 30 day(s) 2023 Not-Taking Alendronate Sodium 70 MG Oral for 84 Days Not-Taking Doxycycline Monohydrate 100 MG 1 capsule Orally Once a day for 10 days 08/23/2023 Active Arthritis Pain 2023 Acti ve Albuterol Sulfate HFA 108 (90 Base) MCG/ACT INHALE 1 TO 2 PUFFS BY MOUTH EVERY 4 TO 6 HOURS NEEDED Inhalation for 16 Days Active Magnesium 400 MG as directed Orally 2023 Active Qvar 2023 Active Bevespi Aerosphere 9-4.8 MCG/ACT INHALE 2 PUFFS BY MOUTH TWICE DAILY Inhalation for 90 Days Active Calcium 600 MG 1 tablet with meals Orally Twice a day for 30 day(s) 2023 Active Turmeric Curcumin 500 MG as directed Orally 2023 Active Vision [...] EVERY DAY Oral for 60 Days Active Rosuvastatin Calcium 20 MG TAKE 1 TABLET BY MOUTH EVERY DAY Oral for 90 Days Active traMADol HCl 50 MG 1 tablet as needed Orally Once a day Active Betamethasone Active Social History Tobacco Use: Social History Observation Description Date Details (start date - stop date) Former Smoker NA - NA Tobacco Use/Smoking Question Answer Notes Are you a: former smoker Additional Findings: Tobacco Non-User Current no n-smoker Tobacco use other than smoking: Question Answer Notes Are you an other tobacco user? No Vital Signs Height 5 ft in 12/14/2023 Weight 120 lbs 12/14/2023 BMI 23.43 kg/m2 12/14/2023 Encounters Encounter Location Date Provider Diagnosis [facility] [address] [address] 12/14/2023 Carla Johnson Atherosclerosis of [place] artery of both lower extremities, with unspecified presence of clinical manifestation I70.203 ; Tinea unguium B35.1 ; Pain in right toe(s) M79.674 and Pain in left toe(s) M79.675 Assessments Encounter Date Diagnosis (ICD Code) Assessment Notes Treatment Notes Treatment Clinical Notes Section Notes 12/14/2023 Atherosclerosis of [place] artery of both lower extremities, with unspecified presence of clinical manifestation (ICD-10 - I70.203) Q7(A), Q8(2B), Q9(1B,2C) 12/14/2023 Tinea unguium (ICD-10 - B35.1) 12/14/2023 Pain in right toe(s) (ICD-10 - M79.674) 12/14/2023 Pain in left toe(s) (ICD-10 - M79.675) Plan Of Treatment Next Appt Details Follow Up: 2 Months, Reason: Provider Name:Carla vasquez, 03/01/2024 03:00:00 PM, [address] [place] [address], [phone], Procedure Notes * Category Sub-Category Detail Notes Debride Nail 6-10 Nail debridement Performance o f this nail treatment by a nonprofessional would put this patients foot and overall health at risk. Therefore, nail debridement was performed extensively to reduce/remove overall nail length, girth, thickness, subungual debris, and necrotic tissue, by manual and/or electrical means through the use of a nail nipper and/or dremel-type thread grinder tool, to a more viable healthy nail plate or bed tissue 6-10. Silver nitrate used for any petechial bleeding as necessary. Definitive antifungal treatment options have been reviewed and discussed with the patient. The patient chooses, no pharmaceutical tx - [address] Keratoma Treatment Parring or Cutting o f Benign Hyperkeratotic Lesion(s) , (-56) 2-4 Lesions - The Benign hyperkeratotic lesions, as described above were pared, and/or cut utilizing a sterile 15 blade, tissue nippers, and/or dremel - 92165 , Q8 Progress Notes * Elizabeth ANDERSENOB:[birth year] (83 yo F)Acc No.[id number]:12/14/2023 Progress Note Patient:?Raquel Andersen Provider:?Carla Johnson DPM :1940???Age:83 Y???Sex:Female D ate:12/14/2023 Address:[address] [place] [id number] Pcp:Vidal Payan MD Subjective: * Chief Complaints: * ???Pcp-11/25/23At Risk Footc arePainful Nail(s) aggravated by shoes and causing difficulty standing/walking. * HPI: ???At Risk footcare:?Pt States Last PCP Visit:?Date?11/25/2023 * ROS:?General/Constitutional:?Nausea?denies.?Vomiting?denies.?Hunger Thirst?denies.?Loss appetite?denies.?Chills?denies.?Fatigue?denies.?Fever?denies.?Night Sweats?denies.?Unexplained weight loss?denies.?Unexplained weight gain?denies.?HEENTM:?Dentures?denies.?Dizziness?denies.?Glasses/contacts?denies.?Retinopathy?de nies.?Blurred/double vision?denies.?TMJ?denies.?Discharge/drainage?denies.?Implants?denies.?Sore throat?denies.?Dental implants?denies.?Hard of hearing ?denies.?Difficulty chewing/swallowing/speaking?denies.?Nose bleeds?denies.?Sore mouth?denies.?Respiratory:?On Oxygen?denies.?Pneumonia/pleurisy?denies.?Bronchitis?denies.?Emphysema?denies.?C oughing?denies.?Cough blood?denies.?Shortness of breath?denies.?Wheezing?denies.?Cardiovascular:?Pacemaker?denies.?MVP?denies.?WPW?denies.?CHF?denies.?Heart attack?denies.?Septal defect?denies.?Rapid beat?denies.?Chest pain ?denies.?Atrial Fib.?denies.?Murmur/Palpitations?denies.?Gastrointestinal:?Hemorrhoids?denies.?Stomach/Abdominal pain?denies.?Dark blood stool?denies.?Irritable bowel ?denies.?Constipation?denies.?Diarrhea?denies.?Hematology:?Swelling?denies.?Clots?denies.?Varicose Veins?denies.?Bruising?denies.?Bleeding problem?denies.?Genitourinary:?Blood urine?denies.?Frequent/Painfu/urination/bladder control?denies.?Kidney stones?denies.?Infection (UTI)?denies.?Nephropathy?denies.?sex trans dis (STD)?denies.?Prostate?denies.?Musculoskeletal:?Hammertoes?denies.?Bunions?denies.?Back Pain?denies.?Muscle Cramps/ Resting?denies.?Muscle cramps / walking?denies.?Generalized aches and pains?admits.?Weakness?denies.?Integ.:?Saeed?denies.?Scars?denies.?Corns/calluses?denies.?Ingrown nails?admits.?Painful nails?admits.?Open Sores?denies.?Rashes?denies.?Neurologic:?Difficulty sleeping?denies.?Brain disorder?denies.?Numbness?denies.?Balance trouble?denies.?Confusion?denies.?Fainting/blackouts?denies.?Tingling?denies.?Tr emors?denies.? * Medical History:? * Surgical History:?biopsy Juan [...] * Vitals:?Ht: 5 ft, Wt: 120, B IN: 23.43, Shoe size: 6, Ht-cm: 152.4 cm, Wt-k.43 kg. * Examination: ???Vascular: ?DP PULSES(B):? 0/4, B/L.?PT PULSES(B):? 0/4, B/L.?CAPILLARY FILL TIME:? delayed, all digits, B/L.?TROPHIC CONDITION-TEXTURE/ELASTICITY/TURGOR/HAIR GROWTH(B):? decreased, B/L.?TEMPERTURE GRADIENT(C):? decreased, cool to cool, proximal to distal, B/L.?CLAUDICATION(C):?denies, B/L.?REST PAIN:?denies, B/L.?Nails: ?NAILS are:?Elongated, overgrown, dystrophic, lytic, greater than 3mm thick, discolored and friable with crumbly malodorous subungual debris, with pain on palpation , 1-5 B/L.?Dermatologic: ?SKIN FINDINGS:?Skin exam reveals Keratotic lesion(s) located at , TA , T5.?Orthopedic: ?MUSCLE STRENGTH:?5/5 all groups in a symmetrical fashion, B/L.?Neurological: ?SENSORY:?Neurological exam reveals intact sensorium, pain sensation normal, vibration sensation intact, pinprick sensation is normal in the lower extremities, Pt denies, anesthesia, burning, paresthesia, tingling, B/L.?General Examination: ?GENERAL APPEARANCE:?Reveals a pleasant, alert, well nourished, well- developed, well hydrated individual, who demonstrates proper attention to hygiene/body habitus, and is in no acute distress, Pt serves as own historian for office visit today.?ORIENTED:?person, place, and time.? Assessment: * Assessment: 1.?Tinea unguium - B35.1?2.? Atherosclerosis of [place] artery of both lower extremities, with unspecified presence of clinical manifestation - I70.203, Q7(A), Q8(2B), Q9(1B,2C)?3.?Pain in right toe(s) - M79.674?4.?Pain in left toe(s) - M79.675? Plan: * Treatment: * Procedures:?Debride Nail 6-10:?Nail debridement?Performance of this nail treatment by a nonprofessional would put this patients foot and overall health at risk. Therefore, nail debridement was performed extensively to reduce/remove overall nail length, girth, thickness, subungual debris, and necrotic tissue, by manual and/or electrical means through the use of a nail nipper and/or dremel-type thread grinder tool, to a more viable healthy nail plate or bed tissue 6-10. Silver nitrate used for any petechial bleeding as necessary. Definitive antifungal treatment options have been reviewed and discussed with the patient. The patient chooses, no pharmaceutical tx - 15925.?Keratoma Treatment:?Parring or Cutting of Benign Hyperkeratotic Lesion(s)?, (-56) 2-4 Lesions - The Benign hyperkeratotic lesions, as described above were pared, and/or cut utilizing a sterile 15 blade, tissue nippers, and/or dremel - 14808 , Q8.? * Procedure Codes:?63662 DEBRI DE NAIL, 6 OR MORE, Modifiers: XS 83417 TRIM SKIN LESIONS, 2 TO 4, Modifiers: XS , Q8 * Follow Up:?2 Months * Images: * Sign off status: Completed true * Provider:?Carla Johnson DPM Date:? Generated for Kenya zavala/Obie/Pipe on:?01/25/2024 07:18 PM EST History and Physical Notes * HPI (History of Present Illness) Category Sub-Category Detail Notes Category Not es At Risk footcare Pt States Last PCP Visit: Date: Examination Category Sub-Category Detail Notes Category Not es Neurological SENSORY: Neurological exa m reveals intact sensorium, pain sensation normal, vibration sensation intact, pinprick sensation is normal in the lower extremities, Pt denies, anesthesia, burning, paresthesia, tingling, B/L Dermatologic SKIN FINDINGS: Skin exam reveal s Keratotic lesion(s) located at , TA , T5 Orthopedic MUSCLE STRENGTH: 5/5 all groups in a symmetrical fashion, B/L General Examination GENERAL APPEARANCE: Reveals a pleasant, alert, well nourished, well-developed, well hydrated individual, who demonstrates proper attention to hygiene/body habitus, and is in no acute distress, Pt serves as own historian for office visit today ORIENTED: person, place, and t elijah Vascular DP PULSES(B): 0/4, B/L PT PULSES(B): 0/4, B/L CAPILLARY FILL TIME: delayed, all digits , B/L TEMPERTURE GRADIENT(C): decreased, cool to cool, proximal to distal, B/L TROPHIC CONDITION-TEXTURE/ELASTICITY/TURGOR/HAIR GROWTH(B): decreased, B/L CLAUDICATION(C): denies, B/L REST PAIN: denies, B/L Nails NAILS are: Elongated, overg rown, dystrophic, lytic, greater than 3mm thick, discolored and friable with crumbly malodorous subungual debris, with pain on palpation , 1-5 B/L
--- OUTSIDE RECORDS SUMMARY | 2024-01-25 19:18 | XMS_ITS | Patient Health Record ---
Author Organization [facility] Sangeetha lavonne [place] Address [address] [place] [address] Care Team Providers Care Traverse Rod Assembler Name Role Phone Vidal Payan MD Primary Care Provider Unavail able Carla Johnson Unavailable [phone] Ameya Estrella Unavailable [phone] Allergies Allergen (clinical drug ingredient) Drug/Non Drug Allergy documented on EMR Reaction Allergy Type Onset Date Status Penicillin Unknown Drug Allergy Active Reason For Referral Diagnosis 1 Atherosclerosis of n ative artery of both lower extremities, with unspecified presence of clinical manifestation (I70.203) Diagnosis 2 Pain in left toe(s) (M79.675) Diagnosis 3 Pain in right toe(s) (M79.674) Diagnosis 4 Ingrown nail (L60.0) Diagnosis 5 Tinea unguium (B35.1 ) Referring Provider First Name Vidal Referring Provider Last Name Schuyler Referred [facility] Referred Provider Carla Johnson Referred Address [address] [place], [place],[address], Referred Provider Specialty Podiatry Referral Priority Routine Diagnosis 1 Atherosclerosis of n ative artery of both lower extremities, with unspecified presence of clinical manifestation (I70.203) Diagnosis 2 Hammer toe of right foot (M20.41) Diagnosis 3 Hammer toe of left f oot (M20.42) Referring Provider First Name Vidal Referring Provider Last Name Schuyler Referred [facility] Referred Provider Ameya Estrella Referred Address [address], [place],[address],[place] Referred Provider Specialty Podiatry Referral Priority Routine Medications Medication SIG (Take, Route, Frequency, Duration) Notes Start Date End Date Status traMADol HCl 50 MG 1 tablet as needed Orally Once a day Active Betamethasone Active Calcium 600 MG 1 tablet with meals Orally Twice a day for 30 day(s) 2023 Active Turmeric Curcumin 500 MG as directed Orally 2023 Active Magnesium 400 MG as directed Orally 2023 Active Vision Select 2023 Activ e Carvedilol 12.5 MG Oral for 90 Days Active Aspirin Low Dose 81 MG 1 tablet Orally O nce a day for 30 day(s) 2023 Not-Taking Eliquis 2.5 MG TAKE 1 TABLET BY RAZ TH TWICE DAILY Oral for 30 Days Active Alendronate Sodium 70 MG Oral for 84 Days Not-Taking Fluticasone Propionate 50 MCG/ACT Nasal for 90 Days Active Doxycycline Monohydrate 100 MG 1 capsule Orally Once a day for 10 days 08/23/2023 Active Donepezil HCl 10 MG TAKE 1 TABLET BY RAZ TH EVERY DAY AT BEDTIME Oral for 90 Days Active Arthritis Pain 2023 Acti ve amLODIPine Besylate 5 MG TAKE 1 TABLET B Y MOUTH EVERY DAY Oral for 60 Days Active Albuterol Sulfate HFA 108 (90 Base) MCG/ACT INHALE 1 TO 2 PUFFS BY MOUTH EVERY 4 TO 6 HOURS NEEDED Inhalation for 16 Days Active Rosuvastatin Calcium 20 MG TAKE 1 TABLET BY MOUTH EVERY DAY Oral for 90 Days Active Qvar 2023 Active Bevespi Aerosphere 9-4.8 MCG/ACT INHALE 2 PUFFS BY MOUTH TWICE DAILY Inhalation for 90 Days Active Social History Tobacco Use: Social History [...] Are you an other tobacco user? No Problems Problem Type SNOMED Code ICD Code Onset Dates Problem Status W/U Status Risk Notes Problem 026302904 Hammer toe of ri ght foot (M20.41) Active confirmed Problem 264971764 Hammer toe of le ft foot (M20.42) Active confirmed Problem Atherosclerosis of [place] artery of both lower extremities, with unspecified presence of clinical manifestation (I70.203) Active confirmed Q7(A), Q8(2B), Q9(1B,2C ) Problem 207140214 Ischemic ulcer o f right foot, limited to breakdown of skin (L97.511) Active confirmed Vital Signs Blood pressure diastolic 56 mm Hg 08/23/2023 Height 5 ft in 12/14/2023 Blood pressure systolic 126 mm Hg 08/23/2023 Weight 120 lbs 12/14/2023 BMI 23.43 kg/m2 12/14/2023 Encounters Encounter Location Date Provider Diagnosis [address] [address] 04/21/2023 Carla Johnson Atherosclerosis of [place] artery of both lower extremities, with unspecified presence of clinical manifestation I70.203 ; Tinea unguium B35.1 ; Pain in right toe(s) M79.674 ; Pain in left toe(s) M79.675 ; Hammer toe of right foot M20.41 and Hammer toe of left foot M20.[address] [address] 07/09/2023 Carla Johnson Atherosclerosis of [place] artery of both lower extremities, with unspecified presence of clinical manifestation I70.203 ; Tinea unguium B35.1 ; Pain in right toe(s) M79.674 ; Pain in left toe(s) M79.675 and Ingrown nail L60.[address] [address] 08/23/2023 Ameya Estrella Cellulitis of right toe L03.031 ; Skin disease L98.9 ; Tinea unguium B35.1 ; Atherosclerosis of [place] artery of both lower extremities, with unspecified presence of clinical manifestation I70.203 ; Pain in right toe(s) M79.674 ; Pain in left toe(s) M79.675 ; Ingrown nail L60.0 and Abscess of toe of right foot L02.[address] [address] 09/07/2023 Carla Johnson Cellulitis of right toe L03.031 ; Atherosclerosis of [place] artery of both lower extremities, with unspecified presence of clinical manifestation I70.203 ; Pain in right toe(s) M79.674 and Ischemic ulcer of right foot, limited to breakdown of skin L97.511 [facility] [address] [address] 09/28/2023 Carla Perica Atherosclerosis of [place] artery of both lower extremities, with unspecified presence of clinical manifestation I70.203 and Pain in right toe(s) M79.674 [facility] [address] [address] 12/14/2023 Carla Perica Atherosclerosis of [place] artery of both lower extremities, with unspecified presence of clinical manifestation I70.203 ; Tinea unguium B35.1 ; Pain in right toe(s) M79.674 and Pain in left toe(s) M79.[address] [address] 02/02/2023 Carla Perica [address] [address] 2023 [facility] [address] 08/24/2023 [facility] [address] [address] 09/02/2023 [facility] [address] [address] 09/07/2023 Carla Johnson Assessments Encounter Date Diagnosis (ICD Code) Assessment Notes Treatment Notes Treatment Clinical Notes Section Notes 04/21/2023 Tinea unguium (ICD-10 - B35.1) 04/21/2023 Atherosclerosis of [place] artery of both lower extremities, with unspecified presence of clinical manifestation (ICD-10 - I70.203) 07/09/2023 Tinea unguium (ICD-10 - B35.1) 07/09/2023 Atherosclerosis of [place] artery of both lower extremities, with unspecified presence of clinical manifestation (ICD-10 - I70.203) 08/23/2023 Cellulitis of right toe (ICD-10 - L03.031) 08/23/2023 Skin disease (ICD-10 - L98.9) 09/07/2023 Cellulitis of right toe (ICD-10 - L03.031) 09/28/2023 Pain in right toe(s) (ICD-10 - M79.674) 09/28/2023 Atherosclerosis of [place] artery of both lower extremities, with unspecified presence of clinical manifestation (ICD-10 - I70.203) 12/14/2023 Tinea unguium (ICD-10 - B35.1) 09/07/2023 Atherosclerosis of [place] artery of both lower extremities, with unspecified presence of clinical manifestation (ICD-10 - I70.203) 12/14/2023 Atherosclerosis of [place] artery of both lower extremities, with unspecified presence of clinical manifestation (ICD-10 - I70.203) Q7(A), Q8(2B), Q9(1B,2C) 12/14/2023 Pain in right toe(s) (ICD-10 - M79.674) 09/07/2023 Pain in right toe(s) (ICD-10 - M79.674) 08/23/2023 Tinea unguium (ICD-10 - B35.1) 07/09/2023 Pain in right toe(s) (ICD-10 - M79.674) 04/21/2023 Pain in right toe(s) (ICD-10 - M79.674) 04/21/2023 Pain in left toe(s) (ICD-10 - M79.675) 07/09/2023 Pain in left toe(s) (ICD-10 - M79.675) 08/23/2023 Atherosclerosis of [place] artery of both lower extremities, with unspecified presence of clinical manifestation (ICD-10 - I70.203) 09/07/2023 Ischemic ulcer of right foot, limited to breakdown of skin (ICD-10 - L97.511) 12/14/2023 Pain in left toe(s) (ICD-10 - M79.675) 07/09/2023 Ingrown nail (ICD-10 - L60.0) 04/21/2023 Hammer toe of right foot (ICD-10 - M20.41) 08/23/2023 Pain in right toe(s) (ICD-10 - M79.674) 08/23/2023 Pain in left toe(s) (ICD-10 - M79.675) 04/21/2023 Hammer toe of left foot (ICD-10 - M20.42) 08/23/2023 Ingrown nail (ICD-10 - L60.0) 08/23/2023 Abscess of toe of right foot (ICD-10 - L02.611) Plan Of Treatment Next Appt Details Provider Name:Carla vasquez, 03/01/2024 03:00:00 PM, [address] [place] [address], [phone], Insurance Providers Payer Name Payer Address Payer Phone Subscriber Number Group Number Insured Name Patient Relationship to Insured Coverage Start Date Coverage End Date [employer] Medicare Preferred [address] [place] [phone] [id number] Raquel Andersen Self - patient is the insured Medical (General) History Medical History History ICD Code Arthritis Back,Hip,and Knee pain High blood pressure Chicken pox Cancer Surgical History Surgery Date(Month/Year) biopsy Lung surgery 07/29/23
--- OUTSIDE RECORDS SUMMARY | 2024-01-25 19:18 | XMS_ITS | Data Portability ---
Author Organization [facility] [place] [facility] Address [address] [place] [phone] Care Team Providers Care Manager Harbor Name Role Phone [facility] CARE TEAM OTHER MAYNOR MITCHELL Primary Care Provider Assessment Encounter Date Assessment Date Assessment LastModified by Organization Details LastModified Time 01/25/2024 01/25/2024 I provided real -time medical direction via phone for this encounter, and was available for additional phone based assistance as needed. I have reviewed and agree with the Assessment and Plan as documented by the [facility] [employer]. We discussed the diagnostic uncertainty of home [...] to call 911- verbalized understanding of instructions [email or web address] Not available 01/25/2024 14:41:41 Plan of Treatment Reminders Order Date Submit Date Provider Last Modified By Organization Details Last Modified Time Details Appointments Urgent Care 2023 10:55A M Nancy Wakefield MD Not available Not available Not available Lab rapid SARS CoV 2 Ag, QL IA, respirato ry specimen 2023 024 [email or web address] [facility], [address] [place] [address], [phone], 01/25/2024 11:19:45 rapid flu (A+B) 2023 024 [email or web address] [facility], [address] [place] [address], [phone], 01/25/2024 11:19:45 Referral None recorded. Procedures None recorded. Surgeries None recorded. Imaging electroca rdiogram 2023 [email or web address] [facility], [address] [place] [address], [phone], 01/25/2024 11:19:45 Medication Orders prednison e 20 mg tablet 2023 [email or web address] [id number], [address], [place], [phone], 01/25/2024 11:19:45 prednison e 20 mg tablet 2023 YAEL [id number], [address], [place], [phone], 01/25/2024 11:19:55 Patient TargetsNo targets recorded. Patient InstructionsNo instructions recorded. Reason for Referral None Reported. Results Created Date Observation Date Name Description Value Unit Range Abnormal Flag Note LastModifiedBy Organization Detail LastModifiedTime 01/25/20 24 01/25/2024 rapid flu (A+B) Flu negati ve Not Available [facility] ed [address] [place] [address], [phone], 01/25/2024 11:01:21 01/25/20 24 01/25/2024 rapid SARS CoV 2 Ag, QL IA, respi rator y speci men rapid SARS CoV 2 Ag, QL IA, respiratory specimen negati ve Not Available [facility] ed [address] [place] [address], [phone], 01/25/2024 11:01:20 01/25/20 24 01/25/2024 elect rocar diogr am No observ ation record ed. [email or web address] [facility] [address] [place] [address], [phone], 01/25/2024 11:19:40 Result Notes None recorded. Procedures Surgical History None recorded. Imaging Results Imaging Date Name Status LastModified by Organization Details LastModified Time 01/25/2024 electrocardiogram completed [facility] [address] [place] [address], [place], [phone], 01/25/2024 11:19:40 Procedure Notes None recorded. Medical Equipment None Reported. Allergies Allergen ID Allergen Name Allergen Category Reaction Reaction Severity Criticality Documentation Date Start Date Code Code System Note Provider Name and Address Organization Details Recorded Time 29379 Medicinal product containin g penicilli n and acting as antibacte rial agent (product) medicatio n Not available Not available Not available 01/25/2024 80211 05 SNOMED Not Available [facility] - production [...] /min 100 % 100 % 2 L/min 39883.4 48 g 20 /min 152.4 cm 115 [...] Diagnosis/Indication Diagnosis SNOMED-CT Code Diagnosis ICD10 Code [id number] Nancy Wakefield MD [facility] [address] [place] [phone] 01/25/2024 10:55:38 01/25/2024 14:42:13 Dyspnea on exertion 65324101 R06.09 Health Concerns Section Related Observation LastModified by Organization Detai ls LastModified Time None Recorded Concern Status LastModified by Organization Details LastModified Time None Recorded Advance Directives Directive None Recorded Payers Encounter Date Sequence Insurance Name Policy Number Policy Terrazas Covered Member ID Terrazas Member ID Guarantor Name 01/25/2024 1 [facility] [facility] - MEDICARE PREFERRED (MEDICARE REPLACEMENT HMO) [id number] Raquel Andersen [id number] Raquel Andersen Notes Date Note Type [...] problemsPMH: Chronic Obstructive Pulmonary Disease (COPD), CancerComments: Water Service Supervisor verified the name//address and phone number. Pt [...] the medic. She has not called her airport operations officer as he is booked and unable to get in. Education provided on the response time and the Patient was advised to monitor reported s/s and seek emergency treatment if needed [facility] Organization Information for Florencio Hartley Legal Name: [employer]? ? Address: [address] [place] [address], Medical Director: Pradeep Farris [facility] No.: [id number] [facility] [employer] [facility] POC Test Results from Florencio Hartley EKG (10:44:28)EKG test performed.Attachmen ts uploaded as part of this test result can be found under Documents section. Rapid COVID antigen (11:02:55) COVID: - Rapid influenza antigen (11:02:57) Flu: - ................... ................... ................... ................... ................... ................... ................... ........ [facility] Note From Florencio Hartley: [facility] makes pt contact. She opens the door and lets [facility] inside. She is wearing a [place] and [...] feeling much better in the presence of [facility]. She informs [facility] how she has been using the SVN and [facility] determines she is not using it correctly. [...] sob. Pt consents to evaluation and treatment today.[facility] gathers pt consent and vital signs. Pt is physically assessed. Lung sounds are clear on the L w/ rhonchi in the R lower lobe. No wheezing noted at this time. Remaining physical exam is unremarkable. 12-lead EKG is also obtained. [facility] contacts [facility] and discusses the above findings. [facility] orders a flu and COVID swab as well as an assessment of exertional RR, HR, and SpO2. [facility] orders [facility] provide pt w/ 40mg prednisone PO for now and prescribes 40mg BID x4 days and calls in Rx to pt's pharmacy. [facility] also orders pt to use her SVN or rescue inhaler QID. [facility] assists pt w/ how to properly use her SVN and leaves a new neb kit w/ pt in case she needs it. Pt is also informed of red flags to monitor herself for up to and including severe cp, high fevers, AMS, and syncope. Pt thanks [facility] for coming.[facility] is clear. Report completed by BOOM Hartley [id number]. [facility] [place] Orders: rapid SARS CoV 2 Ag, QL IA, respiratory specimen: Performed ................... ................... ................... ................... ................... ................... ................... ........ [facility] Consulted: Nancy Wakefield ................... ................... ................... ................... [...] doxycycline twice a day. Nancy Wakefield MD [address] [place] [address],[address], [place], [phone], Nonpareil 01/25/2024 14:42:09 OBGyn Episode No OBEpisode recorded.
--- OUTSIDE RECORDS SUMMARY | 2024-01-25 19:19 | XMS_ITS | Clinical Summary ---
Author Organization Unknown Care Team Providers Care Templer Head Name Role Phone DEVON EVANGELISTA, SANTA Unavailable Unavailable AUGUSTUS CHEUNG, MABEL Unavailable Unavailab edvin AYALA LPN, KOURTNEY Unavailable Vida vailable Payers Payer Name Policy Type Policy Number Effective Date Expira tion Date [employer].AUTH [id number] ADMISSIONS.CODEREQUEST.[place] .AUTH [id number] Problems Condition Name Condition Details Condition Category Status Onset Date Resolution Date Last Treatment Date Treating Clinician Comments ENCNTR FOR SURGICAL AFTCR FOLLOWING SURGERY ON THE RESP SYS Active 07-26 00:00: 00 OTHER NONSPECIFIC ABNORMAL FINDING OF LUNG FIELD Active 07-26 00:00: 00 MALIGNANT NEOPLASM OF UNSP PART OF UNSP BRONCHUS OR LUNG Active 07-26 00:00: 00 CHRONIC OBSTRUCTIVE PULMONARY DISEASE, UNSPECIFIED Active 02-15 00:00: 00 EMPHYSEMA, UNSPECIFIED Active 02-15 00:00: 00 ESSENTIAL (PRIMARY) HYPERTENSION Active 02-15 00:00: 00 PERIPHERAL VASCULAR DISEASE, UNSPECIFIED Active 02-15 00:00: 00 HYPERLIPIDEM IA, UNSPECIFIED Active 02-15 00:00: 00 PERSONAL HISTORY OF NICOTINE DEPENDENCE Active 02-15 00:00: 00 Allergies, Adverse Reactions, Alerts Allergy Name Allergy Type Status Severity Reaction(s) Onset Date Inactive Date Treating Clinician Comments PENICILLINS Propensity to adverse reactions Active 07-28 14:12: 06 Medications Ordered Medication Name Filled Medication Name Start Date Stop Date Current Medication? Ordering Clinician Indication Dosage Frequency Signature (SIG) Comments Components oxycodone 5 mg tablet 07-27 00:00: 00 07-28 00:00 :00 No [id number] Per instruc tions Per instructio ns (route: oral) Med Classific ation: Analgesic , Anti-infl ammatory or Antipyret ic Eliquis 2.5 mg tablet 07-23 00:00: 00 07-28 00:00 :00 No [id number] Per instruc tions TWICE DAILY Per instructio ns TWICE DAILY (route: oral) Med Classific ation: Hematolog ical Agents rosuvastati n 20 mg tablet 07-23 00:00: 00 07-28 00:00 :00 No [id number] Per instruc tions EVERY DAY Per instructio ns EVERY DAY (route: oral) Med Classific ation: Cardiovas cular Therapy Agents Bevespi Aerosphere 9 mcg-4.8 mcg HFA aerosol inhaler 07-22 00:00: 00 07-28 00:00 :00 No [id number] Per instruc tions INTO LUNGS TWICE DAILY FOR 90 DAYS Per instructio ns INTO LUNGS TWICE DAILY FOR 90 DAYS (route: inhalation ) Med Classific ation: Respirato ry Therapy Agents nystatin 100,000 unit/mL oral suspension 07-13 00:00: 00 07-28 00:00 :00 No [id number] Per instruc tions THREE TIMES DAILY Per instructio ns THREE TIMES DAILY (route: oral) Med Classific ation: Mouth-Thr oat-Denta l - Preparati ons Qvar RediHaler 80 mcg/actuati on HFA breath activated aerosol 07-13 00:00: 00 07-28 00:00 :00 No [id number] Per instruc tions TWICE DAILY Per instructio ns TWICE DAILY (route: inhalation ) Med Classific ation: Respirato ry Therapy Agents amlodipine 5 mg tablet 07-07 00:00: 00 07-28 00:00 :00 No [id number] Unavailable Per instruc tions DAILY Per instructio ns DAILY (route: oral) Med Classific ation: Cardiovas cular Therapy Agents carvedilol 12.5 mg tablet 07-07 00:00: 00 07-28 00:00 :00 No [id number] Per instruc tions TWICE DAILY Per instructio ns TWICE DAILY (route: oral) Med Classific ation: Cardiovas cular Therapy Agents ipratropium bromide 42 mcg (0.06 %) nasal spray 07-07 00:00: 00 07-28 00:00 :00 No [id number] Unavailable Per instruc tions THREE TIMES DAILY Per instructio ns THREE TIMES DAILY (route: nasal) Med Classific ation: Respirato ry Therapy Agents tramadol 50 mg tablet 06-28 00:00: 00 07-28 00:00 :00 No [id number] Per instruc tions DAILY NEEDED Per instructio ns DAILY NEEDED (route: oral) Med Classific ation: Analgesic , Anti-infl ammatory or Antipyret ic acetaminoph en 500 mg tablet 07-28 00:00: 00 Yes [id number] MILD PAIN 2 tablet DAILY 2 tablet DAILY (route: oral) Med Classific ation: Analgesic , Anti-infl ammatory or Antipyret ic alendronate 70 mg tablet 07-28 00:00: 00 09-07 23:59 :00 No [id number] OSTEOPOROSI S 1 tablet WEEKLY 1 tablet WEEKLY (route: oral) Med Classific ation: Endocrine amlodipine 5 mg tablet 07-28 00:00: 00 Yes [id number] HIGH BLOOD PRESSURE 1 tablet DAILY 1 tablet DAILY (route: oral) Med Classific ation: Cardiovas cular Therapy Agents aspirin 81 mg tablet,sofy yed release 07-28 00:00: 00 09-07 23:59 :00 No [id number] CORONARY ARTERY DISEASE 1 tablet DAILY 1 tablet DAILY (route: oral) Med Classific ation: Hematolog ical Agents Bevespi Aerosphere 9 mcg-4.8 mcg HFA aerosol inhaler 07-28 00:00: 00 Yes [id number] COPD 2 puff 2 TIMES DAILY 2 puff 2 TIMES DAILY (route: inhalation ) Med Classific ation: Respirato ry Therapy Agents calcium carbonate 600 mg calcium (1,500 mg) tablet 07-28 00:00: 00 Yes [id number] OSTEOPOROSI S 1 tablet 2 TIMES DAILY 1 tablet 2 TIMES DAILY (route: oral) Med Classific ation: Electroly te Balance-N utritiona l Products carvedilol 12.5 mg tablet 07-28 00:00: 00 Yes [id number] HIGH BLOOD PRESSURE 1 tablet EVERY 12 HOURS 1 tablet EVERY 12 HOURS (route: oral) Med Classific ation: Cardiovas cular Therapy Agents Colace 100 mg capsule 07-28 00:00: 00 Yes [id number] CONSTIPATIO N 1 capsule DAILY 1 capsule DAILY (route: oral) Med Classific ation: Gastroint estinal Therapy Agents donepezil 10 mg tablet 07-28 00:00: 00 Yes [id number] DEMENTIA 1 tablet BEDTIME 1 tablet BEDTIME (route: oral) Med Classific ation: Cognitive Disorder Therapy Eliquis 2.5 mg tablet 07-28 00:00: 00 Yes [id number] THINS BLOOD 2.5 mg EVERY 12 HOURS 2.5 mg EVERY 12 HOURS (route: oral) Med Classific ation: Hematolog ical Agents fluticasone propionate 50 mcg/actuati on nasal spray,suspe nsion 07-28 00:00: 00 Yes [id number] ALLERGIES 2 spray DAILY 2 spray DAILY (route: nasal) Med Classific ation: Respirato ry Therapy Agents magnesium oxide 400 mg (241.3 mg magnesium) tablet 07-28 00:00: 00 Yes [id number] OSTEOPOROSI S 1 tablet DAILY 1 tablet DAILY (route: oral) Med Classific ation: Electroly te Balance-N utritiona l Products nystatin 100,000 unit/mL oral suspension 07-28 00:00: 00 08-10 23:59 :00 No [id number] THRUSH 5 mL 3 TIMES DAILY 5 mL 3 TIMES DAILY (route: oral) Med Classific ation: Mouth-Thr oat-Denta l - Preparati ons oxycodone 5 mg tablet 07-28 00:00: 00 Yes [id number] SEVERE PAIN 2.5 mg EVERY 4 HOURS 2.5 mg EVERY 4 HOURS (route: oral) Med Classific ation: Analgesic , Anti-infl ammatory or Antipyret ic polyethylen e glycol 3350 17 gram/dose oral powder 07-28 00:00: 00 Yes [id number] CONSTIPATIO N 17 gram DAILY 17 gram DAILY (route: oral) Med Classific ation: Gastroint estinal Therapy Agents Proventil HFA 90 mcg/actuati on aerosol inhaler 07-28 00:00: 00 Yes [id number] SHORTNESS OF BREATH 1 puff EVERY 4 HOURS 1 puff EVERY 4 HOURS (route: inhalation ) Med Classific ation: Respirato ry Therapy Agents rosuvastati n 20 mg tablet 07-28 00:00: 00 Yes [id number] HIGH CHOLESTEROL 1 tablet BEDTIME 1 tablet BEDTIME (route: oral) Med Classific ation: Cardiovas cular Therapy Agents Senna Lax 8.6 mg tablet 07-28 00:00: 00 Yes [id number] CONSTIPATIO N 2 tablet BEDTIME 2 tablet BEDTIME (route: oral) Med Classific ation: Gastroint estinal Therapy Agents theaworx muscle foam 1 application 07-28 00:00: 00 Yes [id number] LEG CRAMPS 1 applica tion BEDTIME 1 applicatio n BEDTIME (route: TOPICALLY) Med Classific ation: MISCELLAN EOUS TOPICALS (EMOL, PROTECT, L triamcinolo ne acetonide 40 mg/mL suspension for injection 07-28 00:00: 00 Yes [id number] RHEUMATOID ARTHRITIS 40 mg INTERMITTE NT 40 mg INTERMITTE NT (route: injection) Med Classific ation: Endocrine tumeric root extract 500 mg 500 mg 07-28 00:00: 00 Yes [id number] INFLAMMATIO N/RA 1 tablet DAILY 1 tablet DAILY (route: BY MOUTH) Med Classific ation: MISCELLAN EOUS HERBS AND SUPPLEMEN TS vitamin A palmitate-b eta carotene 25,000 unit (15K-10K unit) tablet 07-28 00:00: 00 Yes [id number] MACULAR DEGENERATIO N 2 tablet DAILY 2 tablet DAILY (route: oral) Med Classific ation: Electroly te Balance-N utritiona l Products Qvar RediHaler 80 mcg/actuati on HFA breath activated aerosol 09-22 00:00: 00 Yes [id number] COPD 1 puff 2 TIMES DAILY 1 puff 2 TIMES DAILY (route: inhalation ) Med Classific ation: Respirato ry Therapy Agents gabapentin 100 mg capsule 09-22 00:00: 00 Yes [id number] PAIN 1 capsule 3 TIMES DAILY 1 capsule 3 TIMES DAILY (route: oral) Med Classific ation: Central Nervous System Agents nystatin 100,000 unit/mL oral suspension 09-22 00:00: 00 Yes [id number] THRUSH 4 mL 2 TIMES DAILY 4 mL 2 TIMES DAILY (route: oral) Med Classific ation: Mouth-Thr oat-Denta l - Preparati ons Vital Signs Vital Name Observation Time Observation Value Commen ts Temperature 2023-09-23 14:29:00.000 97.8 [degF] Temperature 2023-09-15 11:26:00.000 97.7 [degF] Temperature 2023-09-08 11:44:00.000 97.6 [degF] Temperature 2023-09-01 15:03:00.000 97.4 [degF] Temperature 2023-08-25 13:25:00.000 97.8 [degF] Temperature 2023-08-18 14:48:00.000 97.8 [degF] Temperature 2023-08-11 13:23:00.000 97.4 [degF] Temperature 2023-08-04 11:41:00.000 97.9 [degF] Temperature 2023-07-29 14:22:00.000 98.1 [degF] BMI (%) 2023-07-29 14:15:23.000 23 kg/m2 Height 2023-07-29 14:15:14.000 60 [in_us] Pulse 2023-09-23 14:29:00.000 66 /min Pulse 2023-09-15 11:26:00.000 70 /min Pulse 2023-09-08 11:44:00.000 64 /min Pulse 2023-09-01 15:03:00.000 71 /min Pulse 2023-08-25 13:25:00.000 68 /min Pulse 2023-08-18 14:48:00.000 69 /min Pulse 2023-08-11 13:23:00.000 72 /min Pulse 2023-08-04 11:41:00.000 58 /min Pulse 2023-07-29 14:22:00.000 67 /min O2 Saturation (%) 2023-09-23 14:29:00.000 96 % O2 Saturation (%) 2023-09-15 11:26:00.000 97 % O2 Saturation (%) 2023-09-08 11:44:00.000 95 % O2 Saturation (%) 2023-09-01 15:03:00.000 97 % O2 Saturation (%) 2023-08-25 13:25:00.000 97 % O2 Saturation (%) 2023-08-18 14:48:00.000 95 % O2 Saturation (%) 2023-08-11 13:23:00.000 95 % O2 Saturation (%) 2023-08-04 11:41:00.000 98 % O2 Saturation (%) 2023-07-29 14:22:00.000 96 % Respirations 2023-09-23 14:29:00.000 18 /min Respirations 2023-09-15 11:26:00.000 18 /min Respirations 2023-09-08 11:44:00.000 18 /min Respirations 2023-09-01 15:03:00.000 16 /min Respirations 2023-08-25 13:25:00.000 18 /min Respirations 2023-08-18 14:48:00.000 18 /min Respirations 2023-08-11 13:23:00.000 18 /min Respirations 2023-08-04 11:41:00.000 18 /min Respirations 2023-07-29 14:22:00.000 18 /min Weight (lbs) 2023-07-29 14:15:23.000 120 [lb_av] Systolic Blood Pressure 2023-09-23 14:29:00.000 122 mm [Hg] Systolic Blood Pressure 2023-09-15 11:26:00.000 126 mm [Hg] Systolic Blood Pressure 2023-09-08 11:44:00.000 110 mm [Hg] Systolic Blood Pressure 2023-09-01 15:03:00.000 122 mm [Hg] Systolic Blood Pressure 2023-08-25 13:25:00.000 130 mm [Hg] Systolic Blood Pressure 2023-08-18 14:48:00.000 122 mm [Hg] Systolic Blood Pressure 2023-08-11 13:23:00.000 124 mm [Hg] Systolic Blood Pressure 2023-08-04 11:41:00.000 118 mm [Hg] Systolic Blood Pressure 2023-07-29 14:22:00.000 130 mm [Hg] Diastolic Blood Pressure 2023-09-23 14:29:00.000 50 mm [Hg] Diastolic Blood Pressure 2023-09-15 11:26:00.000 56 mm [Hg] Diastolic Blood Pressure 2023-09-08 11:44:00.000 58 mm [Hg] Diastolic Blood Pressure 2023-09-01 15:03:00.000 78 mm [Hg] Diastolic Blood Pressure 2023-08-25 13:25:00.000 78 mm [Hg] Diastolic Blood Pressure 2023-08-18 14:48:00.000 74 mm [Hg] Diastolic Blood Pressure 2023-08-11 13:23:00.000 74 mm [Hg] Diastolic Blood Pressure 2023-08-04 11:41:00.000 62 mm [Hg] Diastolic Blood Pressure 2023-07-29 14:22:00.000 50 mm [Hg] Plan of Treatment Planned Activity Planned Date Details Comments Future Scheduled Test MEDICATION MANAGEMENT; REGISTERED NURSE/LICENSED PRACTICAL NURSE TO REVIEW MEDICATIONS FOR INTERACTIONS, EFFECTIVENESS OF DRUG THERAPY, AND SIGNS/SYMPTOMS OF ADVERSE REACTIONS. MAY INSTRUCT AND REINFORCE MEDICATION TEACHING RELATED TO THE USE OF MEDICATIONS, DOSAGE, FREQUENCY, PURPOSE, SIDE EFFECTS, AND TO REPORT COMPLICATIONS. [code = MEDICATION MANAGEMENT; REGISTERED NURSE/LICENSED PRACTICAL NURSE TO REVIEW MEDICATIONS FOR INTERACTIONS, EFFECTIVENESS OF DRUG THERAPY, AND SIGNS/SYMPTOMS OF ADVERSE REACTIONS. MAY INSTRUCT AND REINFORCE MEDICATION TEACHING RELATED TO THE USE OF MEDICATIONS, DOSAGE, FREQUENCY, PURPOSE, SIDE EFFECTS, AND TO REPORT COMPLICATIONS.] Future Scheduled Test RESPIRATOR Y SYSTEM MANAGEMENT; REGISTERED NURSE TO ASSESS AND TEACH/LICENSED PRACTICAL NURSE TO OBSERVE AND TEACH RELATED TO ALTERED RESPIRATORY STATUS TO MINIMIZE COMPLICATIONS AND REDUCE HOSPITALIZATION. [code = RESPIRATORY SYSTEM MANAGEMENT; REGISTERED NURSE TO ASSESS AND TEACH/LICENSED PRACTICAL NURSE TO OBSERVE AND TEACH RELATED TO ALTERED RESPIRATORY STATUS TO MINIMIZE COMPLICATIONS AND REDUCE HOSPITALIZATION. ] Future Scheduled Test FALL REDUC TION MANAGEMENT; REGISTERED NURSE TO ASSESS AND TEACH/LICENSED PRACTICAL NURSE TO OBSERVE AND TEACH ON EDUCATION AND INTERVENTION TO IDENTIFY FALL RISK FACTORS SUCH MEDICATIONS THAT MAY CAUSE DIZZINESS, CHRONIC DISEASES, PSYCHOLOGICAL FACTORS, AND EMPOWER/EDUCATE PATIENT/CAREGIVER TO MINIMIZE FALL RISK. [code = FALL REDUCTION MANAGEMENT; REGISTERED NURSE TO ASSESS AND TEACH/LICENSED PRACTICAL NURSE TO OBSERVE AND TEACH ON EDUCATION AND INTERVENTION TO IDENTIFY FALL RISK FACTORS SUCH MEDICATIONS THAT MAY CAUSE DIZZINESS, CHRONIC DISEASES, PSYCHOLOGICAL FACTORS, AND EMPOWER/EDUCATE PATIENT/CAREGIVER TO MINIMIZE FALL RISK.] Future Scheduled Test RN TO OBSE RVE, ASSESS, EVALUATE, AND DEVELOP AN INDIVIDUALIZED PLAN OF CARE. AGENCY MAY ACCEPT ORDERS FROM CONSULTING PHYSICIANS. REGISTERED NURSETO OBSERVE AND ASSESS/LICENSED PRACTICAL NURSE TO OBSERVE FOR RISK FOR FALLS AND INSTRUCT IN FALL PREVENTION, HOME SAFETY, MEDICATION MANAGEMENT, INFECTION PREVENTION, AND NUTRITION MANAGEMENT. REGISTERED NURSE/LICENSED PRACTICAL NURSE MAY PERFORM O2 SATURATION LEVEL ON ADMISSION AND PRN FOR RN TO ASSESS/TOMATO PASTE MAKER TO OBSERVE PATIENT, WITH NOTIFICATION TO THE PHYSICIAN IF SATURATION IS 90% IN THE ABSENCE OF MORE SPECIFIC PARAMETERS FROM THE PHYSICIAN. AGENCY MAY PERFORM A RESUMPTION OF CARE VISIT FOLLOWING ANY HOSPITAL ADMISSION. REGISTERED NURSE/LICENSED PRACTICAL NURSE TO MONITOR CO-MORBID CONDITIONS LISTED ON THE PLAN OF CARE AND ANY NEW CONDITIONS THAT PRESENT THEMSELVES DURING THIS EPISODE TO IDENTIFY CHANGES AND INTERVENE TO MINIMIZE COMPLICATIONS. [code = RN TO OBSERVE, ASSESS, EVALUATE, AND DEVELOP AN INDIVIDUALIZED PLAN OF CARE. AGENCY MAY ACCEPT ORDERS FROM CONSULTING PHYSICIANS. REGISTERED NURSETO OBSERVE AND ASSESS/LICENSED PRACTICAL NURSE TO OBSERVE FOR RISK FOR FALLS AND INSTRUCT IN FALL PREVENTION, HOME SAFETY, MEDICATION MANAGEMENT, INFECTION PREVENTION, AND NUTRITION MANAGEMENT. REGISTERED NURSE/LICENSED PRACTICAL NURSE MAY PERFORM O2 SATURATION LEVEL ON ADMISSION AND PRN FOR RN TO ASSESS/TOMATO PASTE MAKER TO OBSERVE PATIENT, WITH NOTIFICATION TO THE PHYSICIAN IF SATURATION IS 90% IN THE ABSENCE OF MORE SPECIFIC PARAMETERS FROM THE PHYSICIAN. AGENCY MAY PERFORM A RESUMPTION OF CARE VISIT FOLLOWING ANY HOSPITAL ADMISSION. REGISTERED NURSE/LICENSED PRACTICAL NURSE TO MONITOR CO-MORBID CONDITIONS LISTED ON THE PLAN OF CARE AND ANY NEW CONDITIONS THAT PRESENT THEMSELVES DURING THIS EPISODE TO IDENTIFY CHANGES AND INTERVENE TO MINIMIZE COMPLICATIONS.] Future Scheduled Test PAIN MANAG EMENT; REGISTERED NURSE TO ASSESS AND TEACH/LICENSED PRACTICAL NURSE TO OBSERVE AND TEACH AND PROVIDE EDUCATION ON PAIN MANAGEMENT TECHNIQUES. [code = PAIN MANAGEMENT; REGISTERED NURSE TO ASSESS AND TEACH/LICENSED PRACTICAL NURSE TO OBSERVE AND TEACH AND PROVIDE EDUCATION ON PAIN MANAGEMENT TECHNIQUES.] Future Scheduled Test REGISTERED NURSE/LICENSED PRACTICAL PERFORMED/TAUGHT I PATIENT/CAREGIVER HOW TO CHECK FOR SX OF INFECTION TO OLD CHEST TUBE SITE, LAP SITES OR BILATERAL LOWER LEGS IF ANY SX OF INFECTION ARE NOTED CALL NURSING WHO WILL CALL SURGEON DR SANTA OSORIO [code = REGISTERED NURSE/LICENSED PRACTICAL PERFORMED/TAUGHT I PATIENT/CAREGIVER HOW TO CHECK FOR SX OF INFECTION TO OLD CHEST TUBE SITE, LAP SITES OR BILATERAL LOWER LEGS IF ANY SX OF INFECTION ARE NOTED CALL NURSING WHO WILL CALL SURGEON DR SANTA OSORIO ] Future Scheduled Test CANCER MAN AGEMENT; REGISTERED NURSE TO ASSESS AND TEACH/LICENSED PRACTICAL NURSE TO OBSERVE AND TEACH AND PROVIDE EDUCATION ON CANCER. [code = CANCER MANAGEMENT; REGISTERED NURSE TO ASSESS AND TEACH/LICENSED PRACTICAL NURSE TO OBSERVE AND TEACH AND PROVIDE EDUCATION ON CANCER.] Future Scheduled Test RISK FOR H OSPITALIZATION; REGISTERED NURSE TO ASSESS /TEACH, LICENSED PRACTICAL NURSE TO OBSERVE/TEACH PATIENT/CAREGIVER ON RISK FOR HOSPITALIZATION/EMERGENCY ROOM VISITS, TEACH SIGNS AND SYMPTOMS THAT PUT PATIENT AT RISK, WHEN TO NOTIFY NURSE/PHYSICIAN OF COMPLICATIONS/DECLINE, AND WHEN TO CALL 911. [code = RISK FOR HOSPITALIZATION; REGISTERED NURSE TO ASSESS /TEACH, LICENSED PRACTICAL NURSE TO OBSERVE/TEACH PATIENT/CAREGIVER ON RISK FOR HOSPITALIZATION/EMERGENCY ROOM VISITS, TEACH SIGNS AND SYMPTOMS THAT PUT PATIENT AT RISK, WHEN TO NOTIFY NURSE/PHYSICIAN OF COMPLICATIONS/DECLINE, AND WHEN TO CALL 911.] Future Scheduled Test CARDIOVASC ULAR SYSTEM; REGISTERED NURSE TO ASSESS /TEACH, LICENSED PRACTICAL NURSE TO OBSERVE/TEACH RELATED TO ALTERED CARDIOVASCULAR STATUS TO MINIMIZE COMPLICATIONS AND REDUCE HOSPITALIZATION. [code = CARDIOVASCULAR SYSTEM; REGISTERED NURSE TO ASSESS /TEACH, LICENSED PRACTICAL NURSE TO OBSERVE/TEACH RELATED TO ALTERED CARDIOVASCULAR STATUS TO MINIMIZE COMPLICATIONS AND REDUCE HOSPITALIZATION. ] Future Scheduled Test SKIN INTEG RITY REGISTERED NURSE TO ASSESS AND TEACH/LICENSED PRACTICAL NURSE TO OBSERVE AND TEACH INTEGUMENTARY STATUS TO IDENTIFY CHANGES AND INTERVENE TO MINIMIZE COMPLICATIONS. PROVIDE SKILLED TEACHING OF GENERAL WOUND AND SKIN CARE AND PREVENTION RELATED TO ACTUAL ALTERED SKIN INTEGRITY OLD CHEST TUBE SITE, LAP SITES, FRAGILE FOREARM SKIN AND PVD CHANGES TO LOWER EXTREMITIES [code = SKIN INTEGRITY REGISTERED NURSE TO ASSESS AND TEACH/LICENSED PRACTICAL NURSE TO OBSERVE AND TEACH INTEGUMENTARY STATUS TO IDENTIFY CHANGES AND INTERVENE TO MINIMIZE COMPLICATIONS. PROVIDE SKILLED TEACHING OF GENERAL WOUND AND SKIN CARE AND PREVENTION RELATED TO ACTUAL ALTERED SKIN INTEGRITY OLD CHEST TUBE SITE, LAP SITES, FRAGILE FOREARM SKIN AND PVD CHANGES TO LOWER EXTREMITIES ] Goal 2023-09-23 Patient Goal - I WANT TO STAY INDEPENDENT POSSIBLE IN MY HOME Goal Provider Goal - PATIENT/CAREGIVER TO VERBALIZE, AND CONSISTENTLY DEMONSTRATE EFFECTIVE, SAFE MANAGEMENT OF MEDICATION INCLUDING KNOWLEDGE OF EFFECTIVENESS, POTENTIAL SIDE EFFECTS AND DRUG REACTIONS AND WHEN TO CONTACT THE APPROPRIATE CARE PROVIDER. PATIENT/CAREGIVER WILL BE ABLE TO VERBALIZE UNDERSTANDING OF MEDICATION REGIMEN AND ACCURATELY TAKE MEDICATIONS PRESCRIBED WITHOUT ADVERSE EFFECTS BY EOE Goal Provider Goal - PATIENT / CAREGIVER WILL VERBALIZE/DEMONSTRATE UNDERSTANDING OF MEASURES TO MANAGE ALTERED RESPIRATORY STATUS BY END OF EPISODE. Goal Provider Goal - PATIENT/CAREGIVER ABLE TO IDENTIFY FALL RISK FACTORS AND IMPLEMENT STRATEGIES TO MINIMIZE FALL RISK. PATIENT/CAREGIVER WILL VERBALIZE/DEMONSTRATE AN ABILITY TO ADHERE TO FALL REDUCTION SELF MANAGEMENT AND LIFE-STYLE CHANGES AT DISCHARGE. PERSONAL GOAL(S) STATED BY PATIENT/CAREGIVER WILL BE MET BY EOE Goal Provider Goal - A PLAN OF CARE WILL BE ESTABLISHED THAT MEETS THE PATIENTS NEEDS. PATIENT WILL DEMONSTRATE OXYGEN SATURATION WITHIN NORMAL LIMITS OR PATIENTS OPTIMAL LEVEL ESTABLISHED BY THE PHYSICIAN THROUGHOUT CARE. CHANGES TO CO-MORBID CONDITIONS AND ANY NEW CONDITIONS WILL BE IDENTIFIED AND REPORTED TO THE PHYSICIAN. Goal Provider Goal - PATIENT / CAREGIVER WILL VERBALIZE / DEMONSTRATE UNDERSTANDING OF PAIN CONTROL MEASURES BY EOE Goal Provider Goal - PATIENT / CAREGIVER WILL VERBALIZE / DEMONSTRATE ABILITY TO PERFORM WOUND CARE. WOUND STATUS WILL IMPROVE EVIDENCED BY A DECREASE IN SIZE, DRAINAGE, ABSENCE OF INFECTION, AND DECREASED PAIN BY EOE Goal Provider Goal - PATIENT / CAREGIVER WILL VERBALIZE/DEMONSTRATE UNDERSTANDING OF MEASURES TO MINIMIZE COMPLICATIONS AND REDUCE HOSPITALIZATION RELATED TO CANCER BY END OF EPISODE. Goal Provider Goal - PATIENT/CAREGIVER WILL VERBALIZE UNDERSTANDING OF SIGNS AND SYMPTOMS THAT PUT THE PATIENT AT RISK FOR HOSPITALIZATION /EMERGENCY ROOM VISITS, WHEN TO NOTIFY NURSE/PHYSICIAN OF COMPLICATIONS/DECLINE AND WHEN TO CALL 911. Goal Provider Goal - PATIENT / CAREGIVER WILL VERBALIZE/DEMONSTRATE UNDERSTANDING OF MEASURES TO MANAGE ALTERED CARDIOVASCULAR STATUS BY EOE. Goal Provider Goal - CHANGES IN SKIN INTEGRITY STATUS WILL BE IDENTIFIED AND REPORTED TO THE PHYSICIAN FOR PROMPT INTERVENTION. PATIENT / CAREGIVER WILL VERBALIZE/DEMONSTRATE ADEQUATE KNOWLEDGE OF INTEGUMENTARY STATUS AND APPROPRIATE MEASURES TO PROMOTE SKIN INTEGRITY AND PREVENT INJURY BY EOE Reason for Visit INDEPENDENT IN THE HOME Encounters Start Date/Time End Date/Time Encounter Type Admission Type Attending [facility] Care Department Encounter ID Discharge Date Discharge Status Discharge Condition Discharge Reason Percent Goals Met 2023-07-29 00:00:00 2023-09-23 00:00:00 Outpatient NEW ADMISSION [facility] [id number] 2023-09-23 00:00:00 DISCHARGE TO HOME OR SELF CARE INDEPENDEN T IN THE HOME HH OR PAL- GOALS MET 95.24
== END 2024-01-19 14:07 | disposition home or self-care (01) ==
LOC: HO.HPSW 12:52
PROVIDERS: PCP Internal Medicine; Visit Provider Nurse Practitioner Family
DX: R06.00 Dyspnea, unspecified (principal); J44.1 Chronic obstructive pulmonary disease with (acute) exacerbation; C49.9 Malignant neoplasm of connective and soft tissue, unspecified
CPT/HCPCS: 99214; G2211

== ENCOUNTER → 2024-01-19 12:52 | Outpatient (BNVA) | payer MEDICARE, SELFPAY | PROVIDERS: PCP Internal Medicine; Visit Provider Nurse Practitioner Family | DX: J44.1 Chronic obstructive pulmonary disease with (acute) exacerbation (principal); R91.8 Other nonspecific abnormal finding of lung field; C49.9 Malignant neoplasm of connective and soft tissue, unspecified; Z85.118 Personal history of other malignant neoplasm of bronchus and lung | CPT/HCPCS: 94640; 99212 ==